=== PATIENT | female | born 1930 | race Caucasian/White ===

== ENCOUNTER 2016-11-06 14:14 | Inpatient (IN) | payer MEDICARE, OTHER ==
[~2016-11-06] VITALS: Ht 165.1 cm; Wt 63.5 kg
[~2016-11-06 14:14] MED LIST: ADV500INH INH; ALBUTEROL NEBULIZER INH; ASPI325T5 PO; ATOR1TAB21 PO; AVAP150T PO; AVEL1TAB PO; BACITAB3 PO; CALCTAB41 PO; CALCTAB68 PO; CEFD1CAP8 PO; CLIN1CAP5 PO; CLOP75TA2 PO; CORE25TA PO; FISH1000 PO; FLUC10TA PO; GLUC500T53 PO; GLUCOSAMINE HCL PO; LEVA12INH INH; LIPI80TA PO; LORA10TA2 PO; MULTTAB4 PO; NITR4TASL SL; PRED10TA PO; PRIL20CA PO; VALS1TAB48 PO; VENTOLIN ROTAHALER INH; VITMTA PO
--- NOTE | 2016-11-06 16:44 | REP ---
Clinical: Acute cough . Comparison: 09/21/2016 . Findings: The mediastinum and cardiac silhouette are stable and within normal limits for portable technique. The lung block are clear without acute consolidation, effusion, or pneumothorax. Skeletal structures are intact. Surgical clips noted over the thyroid bed. Impression: No acute cardiopulmonary process appreciated. Signed by Nahum Lozano MD 11/06/2016 04:35 P
[2016-11-06 16:59] LABS: BASO % 0.2 % (0.0-1.0); EOS # 0.1 K/mm3 (0.0-0.50); EOS % 0.7 % (0.0-3.0); LARGE UNSTAINED CELL # 0.1 K/mm3 (0.0-0.4); LARGE UNSTAINED CELL % 0.7 % (0.0-4.0); LYMPH # 0.8 K/mm3 (1.5-4.5); LYMPH % 8.8 % (24.0-44.0); MEAN CORPUSCULAR HEMOGLOBIN 30.7 pg (27.0-33.0); MEAN CORPUSCULAR HGB CONC 33.8 g/dl (32.0-36.5); MONO # 0.3 K/mm3 (0.0-0.8); MONO % 2.8 % (0.0-5.0); NEUTROPHILS # 8.1 K/mm3 (1.8-7.7); NEUTROPHILS % 86.7 % (36.0-66.0); RED CELL DISTRIBUTION WIDTH 12.7 % (11.5-14.5); WHITE BLOOD COUNT 9.4 K/mm3 (4.0-10.0)
[2016-11-06 17:16] LABS: ANION GAP 11 MEQ/L (8-16); BLOOD UREA NITROGEN 24 MG/DL (7-18); CALCIUM LEVEL 8.8 MG/DL (8.8-10.2); CARBON DIOXIDE LEVEL 24 MEQ/L (21-32); CHLORIDE LEVEL 105 MEQ/L (98-107); CREATININE FOR GFR 0.88 MG/DL (0.55-1.02); GLOMERULAR FILTRATION RATE > 60.0 (>32); GLUCOSE, FASTING 117 MG/DL (83-110); POTASSIUM SERUM 4.5 MEQ/L (3.5-5.1); SODIUM LEVEL 140 MEQ/L (136-145)
[2016-11-06 17:40] LABS: PLATELET COUNT, AUTOMATED 92 k/mm3 (150-450)
[2016-11-06] MEDS ORDERED: cefTRIAXone SOD 1 GM VIAL (J0696) As Ordered ONE (19:15)
[2016-11-06] MEDS ORDERED: AZITHROMYCIN INJ 500MG VIAL (J0456) As Ordered ONE (19:17)
[2016-11-06] MEDS ORDERED: ONDANSETRON 4MG/2ML VIAL (J2405) IV PRN (19:45)
[2016-11-06] MEDS ORDERED: ALBUTEROL SULFATE 2.5 MG/0.5 ML INH NEB SOLN NEB PRN (19:45)
[2016-11-06] MEDS ORDERED: BISACODYL 10 MG SUPP PR PRN (19:45)
[2016-11-06] MEDS ORDERED: ACETAMINOPHEN 500 MG TAB PO PRN (19:45)
[2016-11-06] MEDS ORDERED: methylPREDNISolone INJ 125 MG/2 ML VIAL (J2930) As Ordered ONE (19:58)
[2016-11-06] MEDS ORDERED: ACETAMINOPHEN 325 MG TAB As Ordered ONE (20:00)
[2016-11-06] MEDS: BUDESONIDE 0.5 MG/2 ML INHALATION SUSPENSION INH SCH (20:00)
[2016-11-06] MEDS: IPRATROPIUM 0.5MG/ALBUTEROL 2.5MG INH SOL UD 3ML (DUONEB)(J7620) NEB SCH (20:00)
[2016-11-06] MEDS ORDERED: VALS1TAB46 PO (20:25)
[2016-11-06] MEDS ORDERED: ASPI81TA7 PO (20:25)
[2016-11-06] MEDS ORDERED: TYLE500T78 PO (20:25)
[2016-11-06] MEDS ORDERED: BREO1INH3 INH (20:25)
[2016-11-06 20:34] VITALS: BP 166/75
[2016-11-06 20:43] VITALS: BP 164/85
--- NOTE | 2016-11-06 20:51 | REP ---
Clinical: Cough. Findings: Moderate left lower lobe consolidation and small right lower lobe consolidation along with trace lingular opacity is most compatible with multifocal pneumonia / atelectasis. No pleural effusion. No pneumothorax. Mediastinal and hilar adenopathy is likely reactive measuring up to 11 mm short axis diameter. The mediastinum demonstrates atherosclerotic changes without cardiomegaly or pericardial effusion. A [id number] hiatal hernia is identified at the gastroesophageal junction. The patient is noted to be status post right mastectomy. Limited evaluation of the upper abdomen demonstrates normal bilateral adrenal glands. Osseous structures demonstrate degenerative changes without focal osseous abnormality. Impression: 1. Moderate left and small right lower lobe consolidations with trace lingular opacity most compatible with multifocal pneumonia / atelectasis. Mild reactive adenopathy with mediastinal lymph nodes measuring up to 11 mm short axis diameter. 2. Moderate to large hiatal hernia. Signed by Nahum Lozano MD 11/06/2016 08:42 P
--- NOTE | 2016-11-06 21:02 | EDDOCDS ---
Nurse's Notes [facility] Name: Betsy Beverly Age: 86 yrs Sex: Female : 1930 Arrival Date: 11/06/2016 Time: 14:14 Bed 18 Private MD: Danay Angel Diagnosis: Chronic obstructive pulmonary disease with acute lower respiratory infection Presentation: 11/06 14:39 Presenting complaint: Patient states: that is has L ear pain, coughing, a temp, and a ms18 "head cold". Pt was seen at her doctor's office on and given medications a z-pack, but pt's temperature keeps going up per family. Adult Sepsis Screening: The patient does not have new or worsening altered mentation. Patient's respiratory rate is less than 22. Systolic blood pressure is greater than 100. Patient has a qSOFA score of 0- Negative Sepsis Screen. Suicide/Homicide risk assessment- the patient denies having any suicidal and/or homicidal ideations and does not present with any other emotional, behavioral or mental health complaints. 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 Transition of care: patient was not received from another setting of care. 14:39 Acuity: MEGAN Level 3 ms18 14:39 Method Of Arrival: Walkin/Carried/Asstd ms18 Triage Assessment: 14:46 General: Appears in no apparent distress, ill, Behavior is appropriate for age, ms18 cooperative, pleasant. Pain: Location: head and left ear Pain currently is 7 out of 10 on a pain scale. EENT: Reports pain in left ear. Respiratory: Airway is patent Respiratory effort is even, unlabored. Derm: Skin is pink, warm & dry. Historical: - Allergies: SULFA (SULFONAMIDES); Aveloxseizure; - Home Meds: 1. aspirin 81 mg Oral tab 1 tab once daily 2. atorvastatin 20 mg oral tab 1 tab once daily 3. valsartan 80 mg oral cap daily 4. clopidogrel 75 mg oral tab 1 tab once daily 5. Centrum Silver oral tab daily 6. Calcium + Vitamin D 600 mg calcium- 200 unit Oral tab 1000 unit daily 7. Glucosamine 500 mg oral tab daily 8. Gemini 60 mg Oral cap as needed 9. Breo Ellipta 200-25 mcg/dose inhalation dsdv 1 puff once daily - PMHx: Asthma; COPD; Hypercholesterolemia; Hypertension; Seasonal Allergies; sepsis; - PSHx: Hysterectomy; Cholecystectomy; Thyroid Surgery; Mastectomy- Right; - Social history: Smoking status: Patient states was never smoker of tobacco. No barriers to communication noted, The patient speaks fluent Palestinian. - Family history: No immediate family members are acutely ill. - : The pt / caregiver states he / she is on anticoagulants: Plavix. Home medication list is obtained from the patient. - Exposure Risk Screening:: None identified. Screenin:48 Screening information is obtained from the patient. Fall risk: No risks identified. po Assistance ADL's: requires no assistance with activities of daily living. Abuse/DV Screen: The patient / caregiver reports he/she is: not in a situation that causes fear, pain or injury. Nutritional screening: No deficits noted. Advance Directives: Currently, there is a health care proxy, Daughter, Aide Walls. There is an active DNR order but there is no copy available at this time. Further advance directive information is declined. home support is adequate. Assessment: 16:52 Adult Sepsis Screening: The patient does not have new or worsening altered mentation. po Patient's respiratory rate is less than 22. Systolic blood pressure is greater than 100. Patient has a qSOFA score of 0- Negative Sepsis Screen. General: Appears in no apparent distress, comfortable, Behavior is appropriate for age, cooperative, pleasant. Pain: Location: left ear Pain currently is 7 out of 10 on a pain scale. Quality of pain is described as aching, Is continuous. Neurological: Level of Consciousness is awake, alert, Oriented to person, place, time. Cardiovascular: Rhythm is sinus rhythm Chest pain is denied. Respiratory: Airway is patent Respiratory effort is even, unlabored, Breath sounds with rhonchi expiratory bilaterally. Reports cough that is productive. GI: No deficits noted. Derm: Skin is pink, warm & dry. 17:32 General: Appears in no apparent distress, comfortable, Behavior is appropriate for age, po cooperative, pleasant. Pain: Pain currently is 7 out of 10 on a pain scale. Neurological: No deficits noted. Cardiovascular: Rhythm is sinus rhythm Chest pain is denied. Respiratory: Airway is patent Respiratory effort is even, unlabored. Derm: Skin is pink, warm & dry. 19:00 Adult Sepsis Screening: The patient does not have new or worsening altered mentation. po Patient's respiratory rate is less than 22. Systolic blood pressure is greater than 100. Patient has a qSOFA score of 0- Negative Sepsis Screen. General: Appears in no apparent distress, comfortable, Behavior is appropriate for age, cooperative, pleasant. Pain: Location: left ear Pain currently is 7 out of 10 on a pain scale. Quality of pain is described as aching. Neurological: No deficits noted. Respiratory: Airway is patent Respiratory effort is even, unlabored, ambulated in alvarez with walker, O2Sat decreased to 77% on room air while ambulating. Derm: Skin is pink, warm & dry. 19:02 General: Verbal report given by Jose Lemon RN. Assumed care of patient at this time.. [facility] 19:32 General: Appears in no apparent distress, comfortable, well nourished, well groomed, kas2 Behavior is appropriate for age, cooperative. Pain: Location: left ear and head Pain currently is 4 out of 10 on a pain scale. Neurological: Level of Consciousness is awake, alert, Oriented to person, place, time. Cardiovascular: Capillary refill < 3 seconds Heart tones S1 S2 present Rhythm is sinus tachycardia No ectopy. Respiratory: Airway is patent Respiratory effort is even, unlabored, Breath sounds with rhonchi expiratory bilaterally. GI: No deficits noted. Derm: Skin is intact, is healthy with good turgor, Skin is dry, Skin is pink, warm & dry. Skin temperature is hot. 20:06 General: Patient has a temp of 102.6. Patient shivering and uncomfortable all over [facility] body. Meds given.. Vital Signs: 14:17 BP 137 / 73; Pulse 129; Resp 20 S; Temp 100.4(O); Pulse Ox 93% on R/A; Weight 63.5 kg dd6 (R); Height 5 ft. 5 in. (165.10 cm) (R); 15:38 Temp 99.7(O); rs6 16:26 BP 162 / 65 (auto/); po 16:28 Pulse 108 MON; Pulse Ox 94% ; po 16:48 BP 155 / 66 (auto/); po 16:48 Pulse 108 MON; Resp 20; Pulse Ox 94% on R/A; Pain 7/10; po 17:17 Pulse 106 MON; Resp 20; Pulse Ox 96% on R/A; Pain 7/10; po 17:18 BP 149 / 67 (auto/); po 17:48 BP 162 / 70 (auto/); kas2 17:48 Pulse 106 MON; Pulse Ox 93% ; kas2 17:48 Resp 24; Temp 102.4; Pulse Ox 99% on R/A; Pain 4/10; kas2 18:18 BP 161 / 72 (auto/); kas2 18:18 Pulse 106 MON; Pulse Ox 100% ; kas2 19:29 BP 178 / 79 (auto/); kas2 19:29 Pulse 114 MON; Pulse Ox 95% ; kas2 19:51 BP 156 / 74 (auto/); kas2 19:51 Pulse 118 MON; Pulse Ox 95% ; kas2 19:51 BP 156 / 74; Pulse 118; Resp 24; Temp 102.6; Pulse Ox 99% on R/A; Pain 4/10; kas2 20:09 BP 156 / 74; Pulse 118; Resp 24; Temp 102.6; Pulse Ox 99% on R/A; Pain 4/10; kas2 14:17 Body Mass Index 23.30 (63.50 kg, 165.10 cm) dd6 Vitals: 14:17 Log In Time: November 06, 2016 at 14:15. dd6 ED Course: 14:16 Patient visited by Garfield Howard PCA. dd6 14:16 Danay Angel is Private Physician. dd6 14:16 Patient moved to Waiting dd6 14:17 Patient moved to Pre RCE dd6 14:41 Triage Initiated ms18 15:38 Patient moved to I9 / 22 mlb1 15:39 Sarah Holguin MD is Attending Physician. sd1 15:41 Patient visited by Benita Felton, KIMO. dls 15:44 Patient visited by Sarah Holguin MD. sd1 16:05 Patient visited by Barbara Garcia PCA. ls3 16:05 EKG done. (by ED staff). Reviewed by Sarah Holguin MD. ls3 16:23 Jose Lemon,RN is Primary Nurse. hs1 16:23 Patient moved to 18 hs1 16:48 Pt visited by daughter. po 16:48 [facility] Payment Agreement was scanned into [employer] and attached to record. ks16 16:48 The patient / caregiver is instructed regarding the plan of care and ED course. Placed po in gown. Bed in low position. Call light in reach. Side rails up X2. ammunition assembly ii laborer on. Pulse ox on. NIBP on. 16:48 Inserted saline lock: 20 gauge in left antecubital area. Labs drawn. (by ED staff). po Sent per order to lab. 16:59 Patient visited by Jose Lemon RN. po 17:28 Chest, 1 View Returned. EDMS 17:34 Patient visited by Jose Lemon RN. po 19:01 Melina Oliveira RN is Primary Nurse. kas2 19:02 Patient visited by Jose Lemon RN. po 19:03 Patient visited by Melina Oliveira RN. kas2 19:06 Primary Nurse role handed off by Jose Lemon RN po 19:16 Lo Bishop is Hospitalizing Provider. sd1 19:35 Patient visited by Melina Oliveira RN. kas2 20:13 Patient visited by Melina Oliveira RN. kas2 20:15 No procedures done that require assistance. kas2 Administered Medications: 17:05 Drug: NS 0.9% 1000 ml [sodium chloride 0.9 % intravenous solution] Route: IV; Rate: 150 rs3 mL/hr; Site: left antecubital; 19:32 Drug: cefTRIAXone 1 grams [ceftriaxone 1 gram solution for injection] Route: IVPB; kas2 Infused Over: 30 mins; Site: left antecubital; 20:06 Drug: azithromycin 500 mg [azithromycin 500 mg intravenous solution] Route: IVPB; kas2 Infused Over: 1 hrs; Site: left antecubital; 20:06 Drug: Solu-MEDROL 125 mg [Solu-Medrol 500 mg intravenous solution (125 mg)] Route: IVP; kas2 Site: left antecubital; Order Results: Lab Order: B-Type Natiuretic Peptide; SPEC'M 11/06/16 16:46 Test: BRAIN NATRIURETIC PEPTIDE; Value: 51.3; Range: <100; Units: PG/ML; Status: F Lab Order: Basic Metabolic Profile; SPEC'M 11/06/16 16:47 Test: GLUCOSE, FASTING; Value: 117; Range: 83-110; Abnormal: Above high normal; Units: MG/DL; Status: F Test: BLOOD UREA NITROGEN; Value: 24; Range: 7-18; Abnormal: Above high normal; Units: MG/DL; Status: F Test: CREATININE FOR GFR; Value: 0.88; Range: 0.55-1.02; Units: MG/DL; Status: F Test: GLOMERULAR FILTRATION RATE; Value: > 60.0; Range: >32; Status: F Test: SODIUM LEVEL; Value: 140; Range: 136-145; Units: MEQ/L; Status: F Test: POTASSIUM SERUM; Value: 4.5; Range: 3.5-5.1; Units: MEQ/L; Status: F Test: CHLORIDE LEVEL; Value: 105; Range: 98-107; Units: MEQ/L; Status: F Test: CARBON DIOXIDE LEVEL; Value: 24; Range: 21-32; Units: MEQ/L; Status: F Test: ANION GAP; Value: 11; Range: 8-16; Units: MEQ/L; Status: F Test: CALCIUM LEVEL; Value: 8.8; Range: 8.8-10.2; Units: MG/DL; Status: F Test Note: ; Units are mL/min/1.73 m2 Chronic Kidney Disease Staging per NKF: Stage I & II GFR >=60 Normal to Mildly Decreased Stage III GFR 30-59 Moderately Decreased Stage IV GFR 15-29 Severely Decreased Stage V GFR <15 Very Little GFR Left ESRD GFR <15 on FACING BASTER Lab Order: CBC with Diff; SPEC'M 11/06/16 16:46 Test: WHITE BLOOD COUNT; Value: 9.4; Range: 4.0-10.0; Units: K/mm3; Status: F Test: RED BLOOD COUNT; Value: 4.11; Range: 4.00-5.40; Units: M/mm3; Status: F Test: HEMOGLOBIN; Value: 12.6; Range: 12.0-16.0; Units: g/dl; Status: F Test: HEMATOCRIT; Value: 37.4; Range: 36.0-47.0; Units: %; Status: F Test: MEAN CORPUSCULAR VOLUME; Value: 91.0; Range: 80.0-96.0; Units: fl; Status: F Test: MEAN CORPUSCULAR HEMOGLOBIN; Value: 30.7; Range: 27.0-33.0; Units: pg; Status: F Test: MEAN CORPUSCULAR HGB CONC; Value: 33.8; Range: 32.0-36.5; Units: g/dl; Status: F Test: RED CELL DISTRIBUTION WIDTH; Value: 12.7; Range: 11.5-14.5; Units: %; Status: F Test: PLATELET COUNT, AUTOMATED; Value: 92; Range: 150-450; Abnormal: Below low normal; Units: k/mm3; Status: F Test: NEUTROPHILS %; Value: 86.7; Range: 36.0-66.0; Abnormal: Above high normal; Units: %; Status: F Test: LYMPH %; Value: 8.8; Range: 24.0-44.0; Abnormal: Below low normal; Units: %; Status: F Test: MONO %; Value: 2.8; Range: 0.0-5.0; Units: %; Status: F Test: EOS %; Value: 0.7; Range: 0.0-3.0; Units: %; Status: F Test: BASO %; Value: 0.2; Range: 0.0-1.0; Units: %; Status: F Test: LARGE UNSTAINED CELL %; Value: 0.7; Range: 0.0-4.0; Units: %; Status: F Test: NEUTROPHILS #; Value: 8.1; Range: 1.8-7.7; Abnormal: Above high normal; Units: K/mm3; Status: F Test: LYMPH #; Value: 0.8; Range: 1.5-4.5; Abnormal: Below low normal; Units: K/mm3; Status: F Test: MONO #; Value: 0.3; Range: 0.0-0.8; Units: K/mm3; Status: F Test: EOS #; Value: 0.1; Range: 0.0-0.50; Units: K/mm3; Status: F Test: BASO #; Value: 0.0; Range: 0.0-0.2; Units: K/mm3; Status: F Test: LARGE UNSTAINED CELL #; Value: 0.1; Range: 0.0-0.4; Units: K/mm3; Status: F Lab Order: Lactic Acid (Hendrix tube on ice); SPEC'M 11/06/16 16:46 Test: LACTIC ACID LEVEL, LACTATE; Value: 1.5; Range: 0.4-2.0; Units: MMOL/L; Status: F Lab Order: -Influenza A&B Rapid Antigen - Nose; SPEC'M 11/06/16 16:46 Test: INFLUENZA A RAPID SCR by ICA; Value: INFLUENZA A RESULTS NEGATIVE; Status: F Test: INFLUENZA A RAPID SCR by ICA; Value: Comments:; Status: F Test: INFLUENZA B RAPID SCR by ICA; Value: INFLUENZA B RESULTS NEGATIVE; Status: F Test Note: ; The Influenza test is a direct rapid immunoassay for the qualitative detection of Influenza viral antigen. Cell culture (Viral Culture) testing should be considered to confirm NEGATIVE results and to assist in detecting other viruses that can provide similar clinical symptoms. Please contact the lab within 24 hours ([phone]) if confirmatory testing is desired. Radiology Order: Chest, 1 View Test: Chest, 1 View REASON FOR EXAMINATION: Cough; Clinical: Acute cough .; ; Comparison: 09/21/2016 .; ; Findings:; The mediastinum and cardiac silhouette are stable and within normal limits for; portable technique. The lung block are clear without acute consolidation,; effusion, or pneumothorax. Skeletal structures are intact. Surgical clips noted; over the thyroid bed.; ; Impression:; No acute cardiopulmonary process appreciated.; ; ; Signed by; Nahum Lozano MD 11/06/2016 04:35 P; Outcome: 19:16 Decision to Hospitalize by Provider. sd1 20:14 Discharge Assessment: patient administered narcotics - no. The following High Risk [facility] Discharge criteria are identified: None. Admitted to Med/Surg accompanied by tech, via stretcher, with chart. Condition: good Condition: stable Condition: unchanged. CT Study completed. Property :Personal belongings accompany Pt. 21:01 Patient left the ED. kas2 Signatures: Dispatcher [employer] EDMS Sarah Holguin MD MD sd1 Joes Lemon,RN Benita Alejandro RN RN dls Youngs, David, RN RN dy Barney, Michael B RN RN mlb1 Garfield Howard, HENNA FOOD CHECKER dd6 Robyn Anaya RN RN rs3 Dafne Baker RN RN hs1 Wendy Oliveira RN RN ms18 Rika Preciado, FOOD CHECKER FOOD CHECKER rs6 Barbara Garcia, FOOD CHECKER FOOD CHECKER ls3 Randi Bernal, Reg Reg ks16 Melina OliveiraRN RN kas2 Corrections: (The following items were deleted from the chart) 15:56 15:55 Temp 99.7F Oral; rs6 rs6 17:02 16:52 Respiratory: Airway is patent Respiratory effort is even, unlabored, Breath po sounds with rhonchi expiratory bilaterally. po MTDD
--- NOTE | 2016-11-06 21:02 | EDDOCDS ---
Physician Documentation [facility] Name: Betsy Beverly Age: 86 yrs Sex: Female : 1930 Arrival Date: 11/06/2016 Time: 14:14 Bed 18 Private MD: Danay Angel Disposition: 11/06/16 19:16 Hospitalization ordered by Lo Bishop for Inpatient Admission. Preliminary diagnosis is Chronic obstructive pulmonary disease with acute lower respiratory infection. - Bed requested for 4 [place]. - Status is Inpatient Admission. kas2 - Condition is Stable. - Problem is an acute exacerbation. - Symptoms are unchanged. Historical: - Allergies: SULFA (SULFONAMIDES); Aveloxseizure; - Home Meds: 1. aspirin 81 mg Oral tab 1 tab once daily 2. atorvastatin 20 mg oral tab 1 tab once daily 3. valsartan 80 mg oral cap daily 4. clopidogrel 75 mg oral tab 1 tab once daily 5. Centrum Silver oral tab daily 6. Calcium + Vitamin D 600 mg calcium- 200 unit Oral tab 1000 unit daily 7. Glucosamine 500 mg oral tab daily 8. Gemini 60 mg Oral cap as needed 9. Breo Ellipta 200-25 mcg/dose inhalation dsdv 1 puff once daily - PMHx: Asthma; COPD; Hypercholesterolemia; Hypertension; Seasonal Allergies; sepsis; - PSHx: Hysterectomy; Cholecystectomy; Thyroid Surgery; Mastectomy- Right; - Social history: Smoking status: Patient states was never smoker of tobacco. No barriers to communication noted, The patient speaks fluent Bermudian. - Family history: No immediate family members are acutely ill. - : The pt / caregiver states he / she is on anticoagulants: Plavix. Home medication list is obtained from the patient. - Exposure Risk Screening:: None identified. Vital Signs: 11/06 14:17 BP 137 / 73; Pulse 129; Resp 20 S; Temp 100.4(O); Pulse Ox 93% on R/A; Weight 63.5 kg / dd6 139.99 lbs (R); Height 5 ft. 5 in. (165.10 cm) (R); 15:38 Temp 99.7(O); rs6 16:26 BP 162 / 65 (auto/); po 16:28 Pulse 108 MON; Pulse Ox 94% ; po 16:48 BP 155 / 66 (auto/); po 16:48 Pulse 108 MON; Resp 20; Pulse Ox 94% on R/A; Pain 7/10; po 17:17 Pulse 106 MON; Resp 20; Pulse Ox 96% on R/A; Pain 7/10; po 17:18 BP 149 / 67 (auto/); po 17:48 BP 162 / 70 (auto/); kas2 17:48 Pulse 106 MON; Pulse Ox 93% ; kas2 17:48 Resp 24; Temp 102.4; Pulse Ox 99% on R/A; Pain 4/10; kas2 18:18 BP 161 / 72 (auto/); kas2 18:18 Pulse 106 MON; Pulse Ox 100% ; kas2 19:29 BP 178 / 79 (auto/); kas2 19:29 Pulse 114 MON; Pulse Ox 95% ; kas2 19:51 BP 156 / 74 (auto/); kas2 19:51 Pulse 118 MON; Pulse Ox 95% ; kas2 19:51 BP 156 / 74; Pulse 118; Resp 24; Temp 102.6; Pulse Ox 99% on R/A; Pain 4/10; kas2 20:09 BP 156 / 74; Pulse 118; Resp 24; Temp 102.6; Pulse Ox 99% on R/A; Pain 4/10; kas2 14:17 Body Mass Index 23.30 (63.50 kg, 165.10 cm) dd6 MDM: 15:53 -Blood Culture (Adults Only), peripheral from different site, or from device/port/PICC sd1 etc. if present ordered. 15:53 Booky/Pulse Ox/q 15 min VS ordered. sd1 15:53 IV Saline Lock ordered. sd1 15:53 Rhythm Strip to chart ordered. sd1 15:54 B-Type Natiuretic Peptide Ordered. EDMS 15:54 Basic Metabolic Profile Ordered. EDMS 15:54 CBC with Diff Ordered. EDMS 15:54 NS 0.9% 1000 ml IV at 150 mL/hr continuous ordered. sd1 15:55 Obtain sample by nasopharyngeal swab ordered. sd1 15:55 -Blood Culture Ordered. EDMS 15:55 Chest, 1 View Ordered. EDMS 15:55 ECG WITH READING ER PHYS+CARDIAG ordered. EDMS 15:55 -Blood Culture (Adults Only), peripheral from different site, or from device/port/PICC deg etc. if present complete. 15:56 Lactic Acid (Hendrix tube on ice) Ordered. EDMS 15:56 -Influenza A&B Rapid Antigen - Nose Ordered. EDMS 15:56 BLOOD CULTURES Ordered. EDMS 16:31 Financial registration complete. ks16 16:48 [facility] Payment Agreement was scanned into [employer] and attached to record. ks16 17:43 Basic Metabolic Profile Reviewed. sd1 17:43 CBC with Diff Reviewed. sd1 17:43 B-Type Natiuretic Peptide Reviewed. sd1 17:43 Lactic Acid (Hendrix tube on ice) Reviewed. sd1 17:43 -Influenza A&B Rapid Antigen - Nose Reviewed. sd1 17:43 Chest, 1 View Reviewed. sd1 18:27 Misc. Nursing Order ordered. sd1 19:04 BED REQUEST+ADM ordered. EDMS 19:05 CT Chest Without Contrast Ordered. EDMS 19:11 cefTRIAXone 1 grams IVPB once over 30 mins; dilute in 50mL of NS or D5W ordered. sd1 19:11 azithromycin 500 mg IVPB once over 1 hrs; dilute in 250mL of D5W or NS ordered. sd1 19:17 Albuterol-Ipratropium 3 ml Inhalation once ordered. sd1 19:17 Solu-MEDROL 125 mg IVP once ordered. sd1 19:40 Admission / Observation Status ordered. EDMS 19:40 REGULAR DIET ordered. EDMS 19:40 CBC WITH DIFFERENTIAL Ordered. EDMS 19:41 BASIC METABOLIC PROFILE Ordered. EDMS Administered Medications: 17:05 Drug: NS 0.9% 1000 ml [sodium chloride 0.9 % intravenous solution] Route: IV; Rate: 150 rs3 mL/hr; Site: left antecubital; 19:32 Drug: cefTRIAXone 1 grams [ceftriaxone 1 gram solution for injection] Route: IVPB; kas2 Infused Over: 30 mins; Site: left antecubital; 20:06 Drug: azithromycin 500 mg [azithromycin 500 mg intravenous solution] Route: IVPB; kas2 Infused Over: 1 hrs; Site: left antecubital; 20:06 Drug: Solu-MEDROL 125 mg [Solu-Medrol 500 mg intravenous solution (125 mg)] Route: IVP; kas2 Site: left antecubital; Signatures: Dispatcher [employer] EDMS Sarah Holguin MD MD sd1 Prema Streeter, Application Support Consultant Unit deg Lemon,Jose,RN RN po Damion , Charline, RN RN Alen Loving, RN Wendy Seth,RN RN ms18 Randi Bernal, Reg Reg ks16 Melina Oliveira RN RN kas2 Robyn Anaya RN rs3 The chart was reviewed and I authenticate all verbal orders and agree with the evaluation and treatment provided.Corrections: (The following items were deleted from the chart) 17:13 15:53 Oxygen at 4L/Min [place] or Home dosage ordered. sd1 po Attachments: 16:48 [facility] Payment Agreement ks16 MTDD
[2016-11-06 22:00] VITALS: BP 153/72
[2016-11-06] MEDS: LORATADINE 10 MG TAB PO SCH (22:19)
[2016-11-06] MEDS: NS 1,000 ML IV SCH (22:20)
[2016-11-07] MEDS: IPRATROPIUM 0.5MG/ALBUTEROL 2.5MG INH SOL UD 3ML (DUONEB)(J7620) NEB SCH ×4 (02:00→20:02)
[2016-11-07 02:45] VITALS: BP 136/84
--- NOTE | 2016-11-07 04:26 | HPE ---
DATE OF ADMISSION: 11/06/2016 PRIMARY CARE PHYSICIAN: Danay Angel MD. CHIEF COMPLAINT: Fever, cough, headache, brownish phlegm production, and nasal congestion for 7 days, along with left ear pain. PAST MEDICAL HISTORY: 1. Hypertension. 2. Hyperlipidemia. 3. Asthma. 4. Chronic obstructive pulmonary disease (COPD). 5. Seasonal allergies. 6. History of coronary artery disease. 7. History of breast cancer status post right mastectomy. 8. History of drug-induced thrombocytopenia thought to be related to Zosyn and vancomycin. HISTORY OF PRESENT ILLNESS: This is an 86-year-old female from home, who has been feeling sick for the past 6-7 days. She has been having fever, features of a cold, congestion, left ear pain, sinus tenderness, along with cough and phlegm production. Patient had gone to her primary care physician and was given a course of Z-Leon, which she finished this week without any resolution of symptoms. Patient continued to have high-grade fever 101-102 at home, with worsening cough and earache, headache, so came to the emergency room to be evaluated. In the emergency department (ED) on admission, patient did have temperature of 102. Lab work was significant for thrombocytopenia of 92, otherwise everything was within normal limits. Patient was given Tylenol with improvement in temperature and was going to be discharged home; however, on ambulating patient became hypoxic, dropping to 82. Patient does not use any oxygen at home. Following this, patient again had a bout of fever and had a CT scan of the chest done, which shows bilateral infiltrates and multifocal pneumonia, so the patient is being admitted to the hospitalist service for community-acquired pneumonia, bilateral with a COPD exacerbation and upper respiratory tract infection. PAST SURGICAL HISTORY: 1. Hysterectomy. 2. Cholecystectomy. 3. Right mastectomy. 4. Sinus surgery. 5. Cardiac stents. 6. Partial thyroidectomy. HOME MEDICATIONS: - aspirin 81 mg daily - Plavix 75 mg daily - atorvastatin 20 mg daily - valsartan 80 mg daily - calcium/vitamin D one tablet daily - glucosamine 500 mg daily - Gemini 60 mg as needed - Breo Ellipta 200/25 mcg inhalation once a day - Centrum Silver one tablet daily - nitroglycerin 0.4 mg sublingually as needed ALLERGIES: To SULFONAMIDES and AVELOX. SOCIAL HISTORY: Never smoked, does not abuse alcohol or recreational drugs. FAMILY HISTORY: No significant pertinent history present. REVIEW OF SYSTEMS: Patient denies any abdominal pain, any nausea, vomiting or diarrhea. Patient denies any dysuria, any hematuria. Does say that she has hemorrhoids. Does complain of left ear pain, frontal headache and fevers and chills going on from home. There is also complaint of shortness of breath. Denies any palpitations or chest pain. Has a lot of phlegm production, yellowish and brownish in color. PHYSICAL EXAMINATION: VITAL SIGNS: Blood pressure 156/74 , pulse 119, respiratory rate 24, temperature 102.6, pulse oximetry 99% in room air. GENERAL: Patient awake, alert, oriented times three, lying down in bed in no acute distress. HEENT: Normocephalic, atraumatic. Dry mucous membranes. Anicteric eyes. CHEST: Bilateral coarse breath sounds with some rhonchi and basal crackles. CARDIOVASCULAR: S1, S2, irregular, tachycardia. No rub, murmur or gallop. ABDOMEN: Soft, nontender, bowel sounds present. EXTREMITIES: No edema. LABORATORY DATA: WBC 9.4, hemoglobin 12.6, platelets 92. Sodium 140, potassium 4.5, chloride 105, bicarbonate 24, BUN 24, creatinine 0.8, glucose 117, calcium 8.8, lactic 1.5, BNP 51.3. CT chest shows moderate left lower lobe infiltrate, small right lower lobe infiltrate suggesting multifocal pneumonia. ASSESSMENT AND PLAN: This is an 86-year-old female admitted for community-acquired pneumonia, sepsis. PLAN: 1. For community-acquired pneumonia, will start the patient on ceftriaxone. Patient just finished a course of Z-Leon and also received azithromycin one dose in the emergency department (ED), so will not continue azithromycin at this point. 2. Sepsis due to community-acquired pneumonia. Will continue with antibiotics. Blood cultures have been ordered. Flu has been negative. 3. Chronic obstructive pulmonary disease (COPD). Will continue with albuterol ipratropium, budesonide inhalations. Oxygen supplementation as required. There is mild exacerbation going on; however, will not start steroids at this point. 4. Hypertension. Will continue with valsartan. 5. Hyperlipidemia. Will continue with atorvastatin. 6. Coronary artery disease. Will continue with aspirin and Plavix. 7. Upper respiratory infection, as well as left ear infection. She will be covered by ceftriaxone. 8. Deep venous thrombosis (DVT) prophylaxis. Will give thromboembolism deterrent (JORGE L) stockings and sequentials. 9. Thrombocytopenia noted on admission. She does have a history of thrombocytopenia, which has been attributed to antibiotics in the past. She did get a course of azithromycin in the past week, so it is a possibility antibiotic may have caused thrombocytopenia. At present, I am not ordering any azithromycin. Will have to monitor if it improves. Will also not give Lovenox or heparin for DVT prophylaxis. 10. Gastrointestinal (GI) prophylaxis has been ordered.
[2016-11-07 06:00] VITALS: BP 135/70
[2016-11-07 06:49] LABS: ANION GAP 11 MEQ/L (8-16); BLOOD UREA NITROGEN 22 MG/DL (7-18); CARBON DIOXIDE LEVEL 20 MEQ/L (21-32); CHLORIDE LEVEL 110 MEQ/L (98-107); CREATININE FOR GFR 0.76 MG/DL (0.55-1.02); GLOMERULAR FILTRATION RATE > 60.0 (>32); GLUCOSE, FASTING 182 MG/DL (83-110); POTASSIUM SERUM 3.9 MEQ/L (3.5-5.1); SODIUM LEVEL 141 MEQ/L (136-145)
[2016-11-07 06:58] LABS: BASO % 0.1 % (0.0-1.0); EOS % 0.4 % (0.0-3.0); LARGE UNSTAINED CELL # 0.1 K/mm3 (0.0-0.4); LARGE UNSTAINED CELL % 0.9 % (0.0-4.0); LYMPH % 9.5 % (24.0-44.0); MEAN CORPUSCULAR HEMOGLOBIN 31.2 pg (27.0-33.0); MEAN CORPUSCULAR HGB CONC 33.1 g/dl (32.0-36.5); MEAN CORPUSCULAR VOLUME 94.2 fl (80.0-96.0); MONO # 0.2 K/mm3 (0.0-0.8); MONO % 1.5 % (0.0-5.0); NEUTROPHILS # 8.7 K/mm3 (1.8-7.7); NEUTROPHILS % 87.6 % (36.0-66.0); RED CELL DISTRIBUTION WIDTH 12.8 % (11.5-14.5)
[2016-11-07 07:02] LABS: PLATELET COUNT, AUTOMATED 86 k/mm3 (150-450)
--- NOTE | 2016-11-07 07:30 | ECGEPIP ---
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
[2016-11-07] MEDS: BUDESONIDE 0.5 MG/2 ML INHALATION SUSPENSION INH SCH ×2 (07:51→20:02)
[2016-11-07] MEDS ORDERED: ENOXAPARIN 30 MG/0.3 ML SYR (J1650) SC SCH (09:00)
[2016-11-07] MEDS ORDERED: AZITHROMYCIN 250 MG TAB PO SCH (09:00)
[2016-11-07] MEDS: PANTOPRAZOLE 40MG TAB (PROTONIX) PO SCH (09:38)
[2016-11-07] MEDS: NS 1,000 ML IV SCH (10:59)
--- NOTE | 2016-11-07 13:25 | IPNPDOC ---
Assessment/Plan Date Seen The patient was seen on 11/07/16. Plan / VTE VTE Prophylaxis Ordered?: Yes Plan Plan Text 1. Shortness of breath secondary to community acquired pneumonia CT of the chest noted Blood cultures and sputum culture pending Patient states that her respiratory status has improved since admission Patient on Rocephin We will continue to monitor the patient's respiratory status 2. Sepsis due to community-acquired pneumonia. Will continue with antibiotics. Blood cultures have been ordered Flu has been negative. 3. Chronic obstructive pulmonary disease (COPD). Continue with albuterol, ipratropium, budesonide inhalations. No active wheezing at this time, we will hold off on any steroids 4. Hypertension, stable Continue valsartan 5. Hyperlipidemia Continue with atorvastatin. 6. Coronary artery disease Continue with Aspirin and Plavix. 7. Thrombocytopenia It seems as though the patient does have a history of thrombocytopenia dating back to December of last year No active bleeding at this time, and no transfusion of platelets indicated Recommend outpatient workup for thrombocytopenia We will continue to monitor thrombocytopenia 8. History of breast cancer status post right-sided mastectomy Subjective Review of Systems CC/HPI The patient is a 86-year-old female admitted with a reason for visit of Copd Exacerbation, Upper Respiratory Infection. General: Denies: Chills, Night Sweats Constitutional: Denies: Chills, Fever Eyes: Denies: Pain, Vision change ENT: Denies: Ear Pain, Head Aches Skin: Denies: Lesions, Rash Pulmonary: Reports: Cough, Dyspnea Cardiovascular: Denies: Chest Pain, Orthopnea, Palpitations Gastrointestinal: Denies: Abdominal Pain, Nausea, Vomiting Hematologic: Denies: Bleeding Excessively, Bruising Musculoskeletal: Denies: Back Pain, Neck Pain Objective Physical Examination General Exam: Positive: Alert, Cooperative, No Acute Distress ENT Exam: Positive: Atraumatic, Mucous membr. moist/pink Chest Exam: Positive: Diminished, Rhonchi, Negative: Rales Heart Exam: Positive: Normal S1, Normal S2, Rate Normal Vital Signs/I&O Vital Signs Date Time Temp Pulse Resp B/P Pulse Ox O2 Delivery O2 Flow Rate FiO2 11/07/16 10:40 Room Air 11/07/16 06:00 97.5 76 16 135/70 94 I&O- Last 24 Hours up to 6 AM 11/07/16 06:00 Intake Total 360 ml Output Total 0 ml Balance 360 ml Laboratory Data Labs 24H Laboratory Tests 2 11/06/16 16:46: B-Type Natriuretic Peptide 51.3, White Blood Count 9.4, Red Blood Count 4.11, Hemoglobin 12.6, Hematocrit 37.4, Mean Corpuscular Volume 91.0, Mean Corpuscular Hemoglobin 30.7, Mean Corpuscular Hemoglobin Concent 33.8, Red Cell Distribution Width 12.7, Platelet Count 92L, Neutrophils (%) (Auto) 86.7H, Lymphocytes (%) (Auto) 8.8L, Monocytes (%) (Auto) 2.8, Eosinophils (%) (Auto) 0.7, Basophils (%) (Auto) 0.2, Neutrophils # (Auto) 8.1H, Lymphocytes # (Auto) 0.8L, Monocytes # (Auto) 0.3, Eosinophils # (Auto) 0.1, Basophils # (Auto) 0.0, Lactic Acid Level 1.5, Large Unclassified Cells # 0.1, Large Unclassified Cells % 0.7 11/06/16 16:47: Anion Gap 11, Blood Urea Nitrogen 24H, Creatinine 0.88, Sodium Level 140, Potassium Level 4.5, Chloride Level 105, Carbon Dioxide Level 24, Calcium Level 8.8, Glomerular Filtration Rate > 60.0 11/07/16 05:55: White Blood Count 10.0, Red Blood Count 3.64L, Hemoglobin 11.4L, Hematocrit 34.3L, Mean Corpuscular Volume 94.2, Mean Corpuscular Hemoglobin 31.2, Mean Corpuscular Hemoglobin Concent 33.1, Red Cell Distribution Width 12.8, Platelet Count 86L, Neutrophils (%) (Auto) 87.6H, Lymphocytes (%) (Auto) 9.5L, Monocytes (%) (Auto) 1.5, Eosinophils (%) (Auto) 0.4, Basophils (%) (Auto) 0.1, Neutrophils # (Auto) 8.7H, Lymphocytes # (Auto) 1.0L, Monocytes # (Auto) 0.2, Eosinophils # (Auto) 0.0, Basophils # (Auto) 0.0, Large Unclassified Cells # 0.1 , Large Unclassified Cells % 0.9, Anion Gap 11, Blood Urea Nitrogen 22H, Creatinine 0.76, Sodium Level 141, Potassium Level 3.9, Chloride Level 110H, Carbon Dioxide Level 20L, Calcium Level 8.0L, Glomerular Filtration Rate > 60.0 CBC/BMP Laboratory Tests 11/06/16 16:46 Red Blood Count 4.11, Mean Corpuscular Volume 91.0, Mean Corpuscular Hemoglobin 30.7, Mean Corpuscular Hemoglobin Concent 33.8, Red Cell Distribution Width 12.7 , Neutrophils (%) (Auto) 86.7 H, Lymphocytes (%) (Auto) 8.8 L, Monocytes (%) ( Auto) 2.8, Eosinophils (%) (Auto) 0.7, Basophils (%) (Auto) 0.2, Neutrophils # ( Auto) 8.1 H, Lymphocytes # (Auto) 0.8 L, Monocytes # (Auto) 0.3, Eosinophils # ( Auto) 0.1, Basophils # (Auto) 0.0 11/06/16 16:47 Calcium Level 8.8 11/07/16 05:55 Red Blood Count 3.64 L, Mean Corpuscular Volume 94.2, Mean Corpuscular Hemoglobin 31.2, Mean Corpuscular Hemoglobin Concent 33.1, Red Cell Distribution Width 12.8, Neutrophils (%) (Auto) 87.6 H, Lymphocytes (%) (Auto) 9.5 L, Monocytes (%) (Auto) 1.5, Eosinophils (%) (Auto) 0.4, Basophils (%) (Auto ) 0.1, Neutrophils # (Auto) 8.7 H, Lymphocytes # (Auto) 1.0 L, Monocytes # (Auto ) 0.2, Eosinophils # (Auto) 0.0, Basophils # (Auto) 0.0, Calcium Level 8.0 L Microbiology Microbiology 11/06/16 Blood Culture, Received Pending 11/06/16 Blood Culture, Received Pending 11/06/16 Influenza Virus Type A Antigen - Final, Complete 11/06/16 Influenza Virus Type B Antigen - Final, Complete SHIRA FRAGA MD Nov 07, 2016 13:25
[2016-11-07 14:00] VITALS: BP 126/65
[2016-11-07] MEDS: ASPIRIN 81 MG ENTERIC TAB PO SCH (20:03)
[2016-11-07] MEDS: LORATADINE 10 MG TAB PO SCH (20:03)
[2016-11-07] MEDS: CLOPIDOGREL 75 MG TAB PO SCH (20:03)
[2016-11-07] MEDS: cefTRIAXone SOD 1 GM in D5W MINI-BAG PLUS 50 ML IV SCH (20:03)
[2016-11-07] MEDS: ATORVASTATIN 20 MG TAB PO SCH (20:03)
[2016-11-07] MEDS: VALSARTAN 80 MG TAB (DIOVAN) PO SCH (20:03)
[2016-11-07 22:00] VITALS: BP 142/80
[2016-11-08] MEDS: IPRATROPIUM 0.5MG/ALBUTEROL 2.5MG INH SOL UD 3ML (DUONEB)(J7620) NEB SCH ×4 (02:00→19:48)
[2016-11-08 06:00] VITALS: BP 133/63
[2016-11-08 06:03] LABS: BASO % 0.1 % (0.0-1.0); EOS % 0.3 % (0.0-3.0); LARGE UNSTAINED CELL # 0.1 K/mm3 (0.0-0.4); LARGE UNSTAINED CELL % 0.7 % (0.0-4.0); LYMPH # 1.8 K/mm3 (1.5-4.5); LYMPH % 18.3 % (24.0-44.0); MEAN CORPUSCULAR HEMOGLOBIN 31.4 pg (27.0-33.0); MEAN CORPUSCULAR HGB CONC 34.2 g/dl (32.0-36.5); MEAN CORPUSCULAR VOLUME 91.7 fl (80.0-96.0); MONO # 0.3 K/mm3 (0.0-0.8); MONO % 2.7 % (0.0-5.0); NEUTROPHILS # 7.8 K/mm3 (1.8-7.7); NEUTROPHILS % 77.9 % (36.0-66.0); RED CELL DISTRIBUTION WIDTH 12.9 % (11.5-14.5)
[2016-11-08 06:07] LABS: PLATELET COUNT, AUTOMATED 69 k/mm3 (150-450)
[2016-11-08 06:25] LABS: ANION GAP 9 MEQ/L (8-16); BLOOD UREA NITROGEN 20 MG/DL (7-18); CARBON DIOXIDE LEVEL 21 MEQ/L (21-32); CHLORIDE LEVEL 113 MEQ/L (98-107); CREATININE FOR GFR 0.73 MG/DL (0.55-1.02); GLOMERULAR FILTRATION RATE > 60.0 (>32); GLUCOSE, FASTING 105 MG/DL (83-110); POTASSIUM SERUM 3.4 MEQ/L (3.5-5.1); SODIUM LEVEL 143 MEQ/L (136-145)
[2016-11-08] MEDS: BUDESONIDE 0.5 MG/2 ML INHALATION SUSPENSION INH SCH ×2 (07:27→19:48)
[2016-11-08] MEDS: PANTOPRAZOLE 40MG TAB (PROTONIX) PO SCH (09:40)
[2016-11-08] MEDS: POTASSIUM CHLORIDE 10% LIQ 20 MEQ/15 ML UDC PO SCH (09:40)
[2016-11-08] MEDS ORDERED: CEPACOL LOZENGE PO PRN (10:45)
--- NOTE | 2016-11-08 12:53 | IPNPDOC ---
Assessment/Plan Date Seen The patient was seen on 11/08/16. Plan / VTE VTE Prophylaxis Ordered?: Yes Plan Plan Text 1. Shortness of breath secondary to community acquired pneumonia CT of the chest noted Blood cultures unrevealing thus far and sputum culture pending Patient states that her respiratory status has improved since admission Patient on Rocephin We will continue to monitor the patient's respiratory status 2. Sepsis due to community-acquired pneumonia. Will continue with antibiotics. Blood cultures unrevealing thus far Flu has been negative. 3. Chronic obstructive pulmonary disease (COPD). Continue with albuterol, ipratropium, budesonide inhalations. No active wheezing at this time, we will hold off on any steroids 4. Hypertension, stable Continue valsartan 5. Hyperlipidemia Continue with atorvastatin. 6. Coronary artery disease Continue with Aspirin and Plavix. 7. Thrombocytopenia It seems as though the patient does have a history of thrombocytopenia dating back to December of last year No active bleeding at this time, and no transfusion of platelets indicated Recommend outpatient workup for thrombocytopenia We will continue to monitor thrombocytopenia 8. History of breast cancer status post right-sided mastectomy Disposition: As per PT recommendations once medically cleared. Subjective Review of Systems CC/HPI The patient is a 86-year-old female admitted with a reason for visit of Copd Exacerbation, Upper Respiratory Infection. General: Denies: Chills, Night Sweats Constitutional: Denies: Chills, Fever Eyes: Denies: Pain, Vision change ENT: Denies: Ear Pain, Head Aches Skin: Denies: Lesions, Rash Pulmonary: Reports: Cough, Dyspnea Cardiovascular: Denies: Chest Pain, Palpitations Gastrointestinal: Denies: Abdominal Pain, Nausea, Vomiting Hematologic: Denies: Bleeding Excessively, Bruising Objective Physical Examination General Exam: Positive: Alert, Cooperative, No Acute Distress ENT Exam: Positive: Atraumatic, Mucous membr. moist/pink Chest Exam: Positive: Diminished, Rhonchi, Negative: Rales Heart Exam: Positive: Normal S1, Normal S2, Rate Normal Vital Signs/I&O Vital Signs Date Time Temp Pulse Resp B/P Pulse Ox O2 Delivery O2 Flow Rate FiO2 11/08/16 09:45 Room Air 11/08/16 06:00 98.8 87 17 133/63 96 I&O- Last 24 Hours up to 6 AM 11/08/16 06:00 Intake Total 2300 ml Output Total 0 ml Balance 2300 ml Laboratory Data Labs 24H Laboratory Tests 2 11/08/16 05:19: Anion Gap 9, White Blood Count 10.0, Red Blood Count 3.05L, Hemoglobin 9.6L, Hematocrit 27.9L, Mean Corpuscular Volume 91.7, Mean Corpuscular Hemoglobin 31.4 , Mean Corpuscular Hemoglobin Concent 34.2, Red Cell Distribution Width 12.9, Platelet Count 69L, Neutrophils (%) (Auto) 77.9H, Lymphocytes (%) (Auto) 18.3L, Monocytes (%) (Auto) 2.7, Eosinophils (%) (Auto) 0.3, Basophils (%) (Auto) 0.1, Neutrophils # (Auto) 7.8H, Lymphocytes # (Auto) 1.8, Monocytes # (Auto) 0.3, Eosinophils # (Auto) 0.0, Basophils # (Auto) 0.0, Blood Urea Nitrogen 20H, Creatinine 0.73, Sodium Level 143, Potassium Level 3.4L, Chloride Level 113H, Carbon Dioxide Level 21, Calcium Level 7.0L, Glomerular Filtration Rate > 60.0, Large Unclassified Cells # 0.1, Large Unclassified Cells % 0.7 CBC/BMP Laboratory Tests 11/08/16 05:19 Calcium Level 7.0 L, Red Blood Count 3.05 L, Mean Corpuscular Volume 91.7, Mean Corpuscular Hemoglobin 31.4, Mean Corpuscular Hemoglobin Concent 34.2, Red Cell Distribution Width 12.9, Neutrophils (%) (Auto) 77.9 H, Lymphocytes (%) (Auto) 18.3 L, Monocytes (%) (Auto) 2.7, Eosinophils (%) (Auto) 0.3, Basophils (%) ( Auto) 0.1, Neutrophils # (Auto) 7.8 H, Lymphocytes # (Auto) 1.8, Monocytes # ( Auto) 0.3, Eosinophils # (Auto) 0.0, Basophils # (Auto) 0.0 Microbiology Microbiology 11/06/16 Blood Culture - Preliminary, Resulted No growth after 24 hours . All specim... 11/06/16 Blood Culture - Preliminary, Resulted No growth after 24 hours . All specim... 11/06/16 Influenza Virus Type A Antigen - Final, Complete 11/06/16 Influenza Virus Type B Antigen - Final, Complete SHIRA FRAGA MD Nov 08, 2016 12:53
[2016-11-08 14:00] VITALS: BP 143/67
[2016-11-08 20:39] VITALS: BP 151/73
[2016-11-08] MEDS: ATORVASTATIN 20 MG TAB PO SCH (20:39)
[2016-11-08] MEDS: ASPIRIN 81 MG ENTERIC TAB PO SCH (20:39)
[2016-11-08] MEDS: VALSARTAN 80 MG TAB (DIOVAN) PO SCH (20:39)
[2016-11-08] MEDS: CLOPIDOGREL 75 MG TAB PO SCH (20:39)
[2016-11-08] MEDS: cefTRIAXone SOD 1 GM in D5W MINI-BAG PLUS 50 ML IV SCH (20:39)
[2016-11-08] MEDS: LORATADINE 10 MG TAB PO SCH (20:39)
[2016-11-08 22:00] VITALS: BP 151/73
--- NOTE | 2016-11-08 22:02 | EDDOCDS ---
Physician Documentation [facility] Name: Betsy Beverly Age: 86 yrs Sex: Female : 1930 Arrival Date: 11/06/2016 Time: 14:14 Bed 18 Private MD: Danay Angel Disposition: 11/06/16 19:16 Hospitalization ordered by Lo Bishop for Inpatient Admission. Preliminary diagnosis is Chronic obstructive pulmonary disease with acute lower respiratory infection. - Bed requested for 4 [place]. - Status is Inpatient Admission. kas2 - Condition is Stable. - Problem is an acute exacerbation. - Symptoms are unchanged. Historical: - Allergies: SULFA (SULFONAMIDES); Aveloxseizure; - Home Meds: 1. aspirin 81 mg Oral tab 1 tab once daily 2. atorvastatin 20 mg oral tab 1 tab once daily 3. valsartan 80 mg oral cap daily 4. clopidogrel 75 mg oral tab 1 tab once daily 5. Centrum Silver oral tab daily 6. Calcium + Vitamin D 600 mg calcium- 200 unit Oral tab 1000 unit daily 7. Glucosamine 500 mg oral tab daily 8. Gemini 60 mg Oral cap as needed 9. Breo Ellipta 200-25 mcg/dose inhalation dsdv 1 puff once daily - PMHx: Asthma; COPD; Hypercholesterolemia; Hypertension; Seasonal Allergies; sepsis; - PSHx: Hysterectomy; Cholecystectomy; Thyroid Surgery; Mastectomy- Right; - Social history: Smoking status: Patient states was never smoker of tobacco. No barriers to communication noted, The patient speaks fluent [place]isian. - Family history: No immediate family members are acutely ill. - : The pt / caregiver states he / she is on anticoagulants: Plavix. Home medication list is obtained from the patient. - Exposure Risk Screening:: None identified. Vital Signs: 11/06 14:17 BP 137 / 73; Pulse 129; Resp 20 S; Temp 100.4(O); Pulse Ox 93% on R/A; Weight 63.5 kg / dd6 139.99 lbs (R); Height 5 ft. 5 in. (165.10 cm) (R); 15:38 Temp 99.7(O); rs6 16:26 BP 162 / 65 (auto/); po 16:28 Pulse 108 MON; Pulse Ox 94% ; po 16:48 BP 155 / 66 (auto/); po 16:48 Pulse 108 MON; Resp 20; Pulse Ox 94% on R/A; Pain 7/10; po 17:17 Pulse 106 MON; Resp 20; Pulse Ox 96% on R/A; Pain 7/10; po 17:18 BP 149 / 67 (auto/); po 17:48 BP 162 / 70 (auto/); kas2 17:48 Pulse 106 MON; Pulse Ox 93% ; kas2 17:48 Resp 24; Temp 102.4; Pulse Ox 99% on R/A; Pain 4/10; kas2 18:18 BP 161 / 72 (auto/); kas2 18:18 Pulse 106 MON; Pulse Ox 100% ; kas2 19:29 BP 178 / 79 (auto/); kas2 19:29 Pulse 114 MON; Pulse Ox 95% ; kas2 19:51 BP 156 / 74 (auto/); kas2 19:51 Pulse 118 MON; Pulse Ox 95% ; kas2 19:51 BP 156 / 74; Pulse 118; Resp 24; Temp 102.6; Pulse Ox 99% on R/A; Pain 4/10; kas2 20:09 BP 156 / 74; Pulse 118; Resp 24; Temp 102.6; Pulse Ox 99% on R/A; Pain 4/10; kas2 14:17 Body Mass Index 23.30 (63.50 kg, 165.10 cm) dd6 MDM: 15:53 -Blood Culture (Adults Only), peripheral from different site, or from device/port/PICC sd1 etc. if present ordered. 15:53 Painter Helper/Pulse Ox/q 15 min VS ordered. sd1 15:53 IV Saline Lock ordered. sd1 15:53 Rhythm Strip to chart ordered. sd1 15:54 B-Type Natiuretic Peptide Ordered. EDMS 15:54 Basic Metabolic Profile Ordered. EDMS 15:54 CBC with Diff Ordered. EDMS 15:54 NS 0.9% 1000 ml IV at 150 mL/hr continuous ordered. sd1 15:55 Obtain sample by nasopharyngeal swab ordered. sd1 15:55 -Blood Culture Ordered. EDMS 15:55 Chest, 1 View Ordered. EDMS 15:55 ECG WITH READING ER PHYS+CARDIAG ordered. EDMS 15:55 -Blood Culture (Adults Only), peripheral from different site, or from device/port/PICC deg etc. if present complete. 15:56 Lactic Acid (Hendrix tube on ice) Ordered. EDMS 15:56 -Influenza A&B Rapid Antigen - Nose Ordered. EDMS 15:56 BLOOD CULTURES Ordered. EDMS 16:31 Financial registration complete. [email or web address] 16:48 [facility] Payment Agreement was scanned into [employer] and attached to record. [email or web address] 17:43 Basic Metabolic Profile Reviewed. sd1 17:43 CBC with Diff Reviewed. sd1 17:43 B-Type Natiuretic Peptide Reviewed. sd1 17:43 Lactic Acid (Hendrix tube on ice) Reviewed. sd1 17:43 -Influenza A&B Rapid Antigen - Nose Reviewed. sd1 17:43 Chest, 1 View Reviewed. sd1 18:27 Misc. Nursing Order ordered. sd1 19:04 BED REQUEST+ADM ordered. EDMS 19:05 CT Chest Without Contrast Ordered. EDMS 19:11 cefTRIAXone 1 grams IVPB once over 30 mins; dilute in 50mL of NS or D5W ordered. sd1 19:11 azithromycin 500 mg IVPB once over 1 hrs; dilute in 250mL of D5W or NS ordered. sd1 19:17 Albuterol-Ipratropium 3 ml Inhalation once ordered. sd1 19:17 Solu-MEDROL 125 mg IVP once ordered. sd1 19:40 Admission / Observation Status ordered. EDMS 19:40 REGULAR DIET ordered. EDMS 19:40 CBC WITH DIFFERENTIAL Ordered. EDMS 19:41 BASIC METABOLIC PROFILE Ordered. EDMS 11/08 10:46 ECG/EKG was scanned into [employer] and attached to record. gb 13:57 T-Sheet-- Draft Copy was scanned into [employer] and attached to record. gb Administered Medications: 11/06 17:05 Drug: NS 0.9% 1000 ml [sodium chloride 0.9 % intravenous solution] Route: IV; Rate: 150 rs3 mL/hr; Site: left antecubital; 19:32 Drug: cefTRIAXone 1 grams [ceftriaxone 1 gram solution for injection] Route: IVPB; kas2 Infused Over: 30 mins; Site: left antecubital; 20:06 Drug: azithromycin 500 mg [azithromycin 500 mg intravenous solution] Route: IVPB; kas2 Infused Over: 1 hrs; Site: left antecubital; 20:06 Drug: Solu-MEDROL 125 mg [Solu-Medrol 500 mg intravenous solution (125 mg)] Route: IVP; kas2 Site: left antecubital; Signatures: Dispatcher [employer] Sarah Burk MD MD sd1 Prema Streeter, Photo Printer Unit deg Jose LemonRN RN po Damion , Charline RN RN Dorinda Bello, Reg Reg gb Alen Rothman RN RN dy Smith, Mallory, RN RN [id number] Randi Bernal, Reg Reg [id number] Melina Oliveira RN RN kas2 Robyn Anaya RN rs3 The chart was reviewed and I authenticate all verbal orders and agree with the evaluation and treatment provided.Corrections: (The following items were deleted from the chart) 17:13 15:53 Oxygen at 4L/Min NC or Home dosage ordered. sd1 po Attachments: 16:48 [facility] Payment Agreement [email or web address] 11/08 10:46 ECG/EKG gb 13:57 T-Sheet-- Draft Copy gb Chart Complete MTDD
--- NOTE | 2016-11-08 22:02 | EDDOCDS ---
Physician Documentation [facility] Name: Betsy Beverly Age: 86 yrs Sex: Female : 1930 Arrival Date: 11/06/2016 Time: 14:14 Bed 18 Private MD: Danay Angel Disposition: 11/06/16 19:16 Hospitalization ordered by Lo Bishop for Inpatient Admission. Preliminary diagnosis is Chronic obstructive pulmonary disease with acute lower respiratory infection. - Bed requested for 4 [place]. - Status is Inpatient Admission. kas2 - Condition is Stable. - Problem is an acute exacerbation. - Symptoms are unchanged. Historical: - Allergies: SULFA (SULFONAMIDES); Aveloxseizure; - Home Meds: 1. aspirin 81 mg Oral tab 1 tab once daily 2. atorvastatin 20 mg oral tab 1 tab once daily 3. valsartan 80 mg oral cap daily 4. clopidogrel 75 mg oral tab 1 tab once daily 5. Centrum Silver oral tab daily 6. Calcium + Vitamin D 600 mg calcium- 200 unit Oral tab 1000 unit daily 7. Glucosamine 500 mg oral tab daily 8. Gemini 60 mg Oral cap as needed 9. Breo Ellipta 200-25 mcg/dose inhalation dsdv 1 puff once daily - PMHx: Asthma; COPD; Hypercholesterolemia; Hypertension; Seasonal Allergies; sepsis; - PSHx: Hysterectomy; Cholecystectomy; Thyroid Surgery; Mastectomy- Right; - Social history: Smoking status: Patient states was never smoker of tobacco. No barriers to communication noted, The patient speaks fluent [place]amb[place]. - Family history: No immediate family members are acutely ill. - : The pt / caregiver states he / she is on anticoagulants: Plavix. Home medication list is obtained from the patient. - Exposure Risk Screening:: None identified. Vital Signs: 11/06 14:17 BP 137 / 73; Pulse 129; Resp 20 S; Temp 100.4(O); Pulse Ox 93% on R/A; Weight 63.5 kg / dd6 139.99 lbs (R); Height 5 ft. 5 in. (165.10 cm) (R); 15:38 Temp 99.7(O); rs6 16:26 BP 162 / 65 (auto/); po 16:28 Pulse 108 MON; Pulse Ox 94% ; po 16:48 BP 155 / 66 (auto/); po 16:48 Pulse 108 MON; Resp 20; Pulse Ox 94% on R/A; Pain 7/10; po 17:17 Pulse 106 MON; Resp 20; Pulse Ox 96% on R/A; Pain 7/10; po 17:18 BP 149 / 67 (auto/); po 17:48 BP 162 / 70 (auto/); kas2 17:48 Pulse 106 MON; Pulse Ox 93% ; kas2 17:48 Resp 24; Temp 102.4; Pulse Ox 99% on R/A; Pain 4/10; kas2 18:18 BP 161 / 72 (auto/); kas2 18:18 Pulse 106 MON; Pulse Ox 100% ; kas2 19:29 BP 178 / 79 (auto/); kas2 19:29 Pulse 114 MON; Pulse Ox 95% ; kas2 19:51 BP 156 / 74 (auto/); kas2 19:51 Pulse 118 MON; Pulse Ox 95% ; kas2 19:51 BP 156 / 74; Pulse 118; Resp 24; Temp 102.6; Pulse Ox 99% on R/A; Pain 4/10; kas2 20:09 BP 156 / 74; Pulse 118; Resp 24; Temp 102.6; Pulse Ox 99% on R/A; Pain 4/10; kas2 14:17 Body Mass Index 23.30 (63.50 kg, 165.10 cm) dd6 MDM: 15:53 -Blood Culture (Adults Only), peripheral from different site, or from device/port/PICC sd1 etc. if present ordered. 15:53 Insurance Specialist/Pulse Ox/q 15 min VS ordered. sd1 15:53 IV Saline Lock ordered. sd1 15:53 Rhythm Strip to chart ordered. sd1 15:54 B-Type Natiuretic Peptide Ordered. EDMS 15:54 Basic Metabolic Profile Ordered. EDMS 15:54 CBC with Diff Ordered. EDMS 15:54 NS 0.9% 1000 ml IV at 150 mL/hr continuous ordered. sd1 15:55 Obtain sample by nasopharyngeal swab ordered. sd1 15:55 -Blood Culture Ordered. EDMS 15:55 Chest, 1 View Ordered. EDMS 15:55 ECG WITH READING ER PHYS+CARDIAG ordered. EDMS 15:55 -Blood Culture (Adults Only), peripheral from different site, or from device/port/PICC deg etc. if present complete. 15:56 Lactic Acid (Hendrix tube on ice) Ordered. EDMS 15:56 -Influenza A&B Rapid Antigen - Nose Ordered. EDMS 15:56 BLOOD CULTURES Ordered. EDMS 16:31 Financial registration complete. ks16 16:48 [facility] Payment Agreement was scanned into [employer]. and attached to record. ks16 17:43 Basic Metabolic Profile Reviewed. sd1 17:43 CBC with Diff Reviewed. sd1 17:43 B-Type Natiuretic Peptide Reviewed. sd1 17:43 Lactic Acid (Hendrix tube on ice) Reviewed. sd1 17:43 -Influenza A&B Rapid Antigen - Nose Reviewed. sd1 17:43 Chest, 1 View Reviewed. sd1 18:27 Misc. Nursing Order ordered. sd1 19:04 BED REQUEST+ADM ordered. EDMS 19:05 CT Chest Without Contrast Ordered. EDMS 19:11 cefTRIAXone 1 grams IVPB once over 30 mins; dilute in 50mL of NS or D5W ordered. sd1 19:11 azithromycin 500 mg IVPB once over 1 hrs; dilute in 250mL of D5W or NS ordered. sd1 19:17 Albuterol-Ipratropium 3 ml Inhalation once ordered. sd1 19:17 Solu-MEDROL 125 mg IVP once ordered. sd1 19:40 Admission / Observation Status ordered. EDMS 19:40 REGULAR DIET ordered. EDMS 19:40 CBC WITH DIFFERENTIAL Ordered. EDMS 19:41 BASIC METABOLIC PROFILE Ordered. EDMS 11/08 10:46 ECG/EKG was scanned into [employer]. and attached to record. gb 13:57 T-Sheet-- Draft Copy was scanned into [employer]. and attached to record. gb Administered Medications: 11/06 17:05 Drug: NS 0.9% 1000 ml [sodium chloride 0.9 % intravenous solution] Route: IV; Rate: 150 rs3 mL/hr; Site: left antecubital; 19:32 Drug: cefTRIAXone 1 grams [ceftriaxone 1 gram solution for injection] Route: IVPB; kas2 Infused Over: 30 mins; Site: left antecubital; 20:06 Drug: azithromycin 500 mg [azithromycin 500 mg intravenous solution] Route: IVPB; kas2 Infused Over: 1 hrs; Site: left antecubital; 20:06 Drug: Solu-MEDROL 125 mg [Solu-Medrol 500 mg intravenous solution (125 mg)] Route: IVP; kas2 Site: left antecubital; Signatures: Dispatcher [employer] Sarah Burk MD MD sd1 Prema Streeter, Human Resources Professional Unit deg Jose LemonRN RN po Damion , Charline RN RN Dorinda Bello, Reg Reg gb Alen Rothman RN RN dy Smith, Mallory, RN RN ms18 Randi Bernal, Reg Reg ks16 Melina Oliveira RN RN kas2 Robyn Anaya RN rs3 The chart was reviewed and I authenticate all verbal orders and agree with the evaluation and treatment provided.Corrections: (The following items were deleted from the chart) 17:13 15:53 Oxygen at 4L/Min NC or Home dosage ordered. sd1 po Attachments: 16:48 [facility] Payment Agreement ks16 11/08 10:46 ECG/EKG gb 13:57 T-Sheet-- Draft Copy gb Chart Complete MTDD
--- NOTE | 2016-11-08 22:03 | EDDOCDS ---
Nurse's Notes [facility] Name: Betsy Beverly Age: 86 yrs Sex: Female : 1930 Arrival Date: 11/06/2016 Time: 14:14 Bed 18 Private MD: Danay Angel Diagnosis: Chronic obstructive pulmonary disease with acute lower respiratory infection Presentation: 11/06 14:39 Presenting complaint: Patient states: that is has L ear pain, coughing, a temp, and a ms18 "head cold". Pt was seen at her doctor's office on and given medications a z-pack, but pt's temperature keeps going up per family. Adult Sepsis Screening: The patient does not have new or worsening altered mentation. Patient's respiratory rate is less than 22. Systolic blood pressure is greater than 100. Patient has a qSOFA score of 0- Negative Sepsis Screen. Suicide/Homicide risk assessment- the patient denies having any suicidal and/or homicidal ideations and does not present with any other emotional, behavioral or mental health complaints. Status: Patient is not a special agent secret service or dependent. Transition of care: patient was not received from another setting of care. 14:39 Acuity: MEGAN Level 3 ms18 14:39 Method Of Arrival: Walkin/Carried/Asstd ms18 Triage Assessment: 14:46 General: Appears in no apparent distress, ill, Behavior is appropriate for age, ms18 cooperative, pleasant. Pain: Location: head and left ear Pain currently is 7 out of 10 on a pain scale. EENT: Reports pain in left ear. Respiratory: Airway is patent Respiratory effort is even, unlabored. Derm: Skin is pink, warm & dry. Historical: - Allergies: SULFA (SULFONAMIDES); Aveloxseizure; - Home Meds: 1. aspirin 81 mg Oral tab 1 tab once daily 2. atorvastatin 20 mg oral tab 1 tab once daily 3. valsartan 80 mg oral cap daily 4. clopidogrel 75 mg oral tab 1 tab once daily 5. Centrum Silver oral tab daily 6. Calcium + Vitamin D 600 mg calcium- 200 unit Oral tab 1000 unit daily 7. Glucosamine 500 mg oral tab daily 8. Gemini 60 mg Oral cap as needed 9. Breo Ellipta 200-25 mcg/dose inhalation dsdv 1 puff once daily - PMHx: Asthma; COPD; Hypercholesterolemia; Hypertension; Seasonal Allergies; sepsis; - PSHx: Hysterectomy; Cholecystectomy; Thyroid Surgery; Mastectomy- Right; - Social history: Smoking status: Patient states was never smoker of tobacco. No barriers to communication noted, The patient speaks fluent Kitt[place]. - Family history: No immediate family members are acutely ill. - : The pt / caregiver states he / she is on anticoagulants: Plavix. Home medication list is obtained from the patient. - Exposure Risk Screening:: None identified. Screenin:48 Screening information is obtained from the patient. Fall risk: No risks identified. po Assistance ADL's: requires no assistance with activities of daily living. Abuse/DV Screen: The patient / caregiver reports he/she is: not in a situation that causes fear, pain or injury. Nutritional screening: No deficits noted. Advance Directives: Currently, there is a health care proxy, Daughter, Aide Walls. There is an active DNR order but there is no copy available at this time. Further advance directive information is declined. home support is adequate. Assessment: 16:52 Adult Sepsis Screening: The patient does not have new or worsening altered mentation. po Patient's respiratory rate is less than 22. Systolic blood pressure is greater than 100. Patient has a qSOFA score of 0- Negative Sepsis Screen. General: Appears in no apparent distress, comfortable, Behavior is appropriate for age, cooperative, pleasant. Pain: Location: left ear Pain currently is 7 out of 10 on a pain scale. Quality of pain is described as aching, Is continuous. Neurological: Level of Consciousness is awake, alert, Oriented to person, place, time. Cardiovascular: Rhythm is sinus rhythm Chest pain is denied. Respiratory: Airway is patent Respiratory effort is even, unlabored, Breath sounds with rhonchi expiratory bilaterally. Reports cough that is productive. GI: No deficits noted. Derm: Skin is pink, warm & dry. 17:32 General: Appears in no apparent distress, comfortable, Behavior is appropriate for age, po cooperative, pleasant. Pain: Pain currently is 7 out of 10 on a pain scale. Neurological: No deficits noted. Cardiovascular: Rhythm is sinus rhythm Chest pain is denied. Respiratory: Airway is patent Respiratory effort is even, unlabored. Derm: Skin is pink, warm & dry. 19:00 Adult Sepsis Screening: The patient does not have new or worsening altered mentation. po Patient's respiratory rate is less than 22. Systolic blood pressure is greater than 100. Patient has a qSOFA score of 0- Negative Sepsis Screen. General: Appears in no apparent distress, comfortable, Behavior is appropriate for age, cooperative, pleasant. Pain: Location: left ear Pain currently is 7 out of 10 on a pain scale. Quality of pain is described as aching. Neurological: No deficits noted. Respiratory: Airway is patent Respiratory effort is even, unlabored, ambulated in alvarez with walker, O2Sat decreased to 77% on room air while ambulating. Derm: Skin is pink, warm & dry. 19:02 General: Verbal report given by Jose Lemon RN. Assumed care of patient at this time.. [facility] 19:32 General: Appears in no apparent distress, comfortable, well nourished, well groomed, kas2 Behavior is appropriate for age, cooperative. Pain: Location: left ear and head Pain currently is 4 out of 10 on a pain scale. Neurological: Level of Consciousness is awake, alert, Oriented to person, place, time. Cardiovascular: Capillary refill < 3 seconds Heart tones S1 S2 present Rhythm is sinus tachycardia No ectopy. Respiratory: Airway is patent Respiratory effort is even, unlabored, Breath sounds with rhonchi expiratory bilaterally. GI: No deficits noted. Derm: Skin is intact, is healthy with good turgor, Skin is dry, Skin is pink, warm & dry. Skin temperature is hot. 20:06 General: Patient has a temp of 102.6. Patient shivering and uncomfortable all over [facility] body. Meds given.. Vital Signs: 14:17 BP 137 / 73; Pulse 129; Resp 20 S; Temp 100.4(O); Pulse Ox 93% on R/A; Weight 63.5 kg dd6 (R); Height 5 ft. 5 in. (165.10 cm) (R); 15:38 Temp 99.7(O); rs6 16:26 BP 162 / 65 (auto/); po 16:28 Pulse 108 MON; Pulse Ox 94% ; po 16:48 BP 155 / 66 (auto/); po 16:48 Pulse 108 MON; Resp 20; Pulse Ox 94% on R/A; Pain 7/10; po 17:17 Pulse 106 MON; Resp 20; Pulse Ox 96% on R/A; Pain 7/10; po 17:18 BP 149 / 67 (auto/); po 17:48 BP 162 / 70 (auto/); kas2 17:48 Pulse 106 MON; Pulse Ox 93% ; kas2 17:48 Resp 24; Temp 102.4; Pulse Ox 99% on R/A; Pain 4/10; kas2 18:18 BP 161 / 72 (auto/); kas2 18:18 Pulse 106 MON; Pulse Ox 100% ; kas2 19:29 BP 178 / 79 (auto/); kas2 19:29 Pulse 114 MON; Pulse Ox 95% ; kas2 19:51 BP 156 / 74 (auto/); kas2 19:51 Pulse 118 MON; Pulse Ox 95% ; kas2 19:51 BP 156 / 74; Pulse 118; Resp 24; Temp 102.6; Pulse Ox 99% on R/A; Pain 4/10; kas2 20:09 BP 156 / 74; Pulse 118; Resp 24; Temp 102.6; Pulse Ox 99% on R/A; Pain 4/10; kas2 14:17 Body Mass Index 23.30 (63.50 kg, 165.10 cm) dd6 Vitals: 14:17 Log In Time: November 06, 2016 at 14:15. dd6 ED Course: 14:16 Patient visited by Garfield Howard PCA. dd6 14:16 Danay Angel is Private Physician. dd6 14:16 Patient moved to Waiting dd6 14:17 Patient moved to Pre RCE dd6 14:41 Triage Initiated ms18 15:38 Patient moved to I9 / 22 mlb1 15:39 Sarah Holguin MD is Attending Physician. sd1 15:41 Patient visited by Benita Felton, KIMO. dls 15:44 Patient visited by Sarah Holguin MD. sd1 16:05 Patient visited by Barbara Garcia PCA. ls3 16:05 EKG done. (by ED staff). Reviewed by Sarah Holguin MD. ls3 16:23 Jose Lemon,RN is Primary Nurse. hs1 16:23 Patient moved to 18 hs1 16:48 Pt visited by daughter. po 16:48 [facility] Payment Agreement was scanned into [employer] and attached to record. ks16 16:48 The patient / caregiver is instructed regarding the plan of care and ED course. Placed po in gown. Bed in low position. Call light in reach. Side rails up X2. production service manager on. Pulse ox on. NIBP on. 16:48 Inserted saline lock: 20 gauge in left antecubital area. Labs drawn. (by ED staff). po Sent per order to lab. 16:59 Patient visited by Jose Lemon RN. po 17:28 Chest, 1 View Returned. EDMS 17:34 Patient visited by Jose Lemon RN. po 19:01 Melina Oliveira RN is Primary Nurse. kas2 19:02 Patient visited by Jose Lemon RN. po 19:03 Patient visited by Melina Oliveira RN. kas2 19:06 Primary Nurse role handed off by Jose Lemon RN po 19:16 Lo Bishop is Hospitalizing Provider. sd1 19:35 Patient visited by Melina Oliveira RN. kas2 20:13 Patient visited by Melina Oliveira RN. kas2 20:15 No procedures done that require assistance. kas2 11/08 10:46 ECG/EKG was scanned into [employer] and attached to record. gb 13:57 T-Sheet-- Draft Copy was scanned into [employer] and attached to record. gb Administered Medications: 11/06 17:05 Drug: NS 0.9% 1000 ml [sodium chloride 0.9 % intravenous solution] Route: IV; Rate: 150 rs3 mL/hr; Site: left antecubital; 19:32 Drug: cefTRIAXone 1 grams [ceftriaxone 1 gram solution for injection] Route: IVPB; kas2 Infused Over: 30 mins; Site: left antecubital; 20:06 Drug: azithromycin 500 mg [azithromycin 500 mg intravenous solution] Route: IVPB; kas2 Infused Over: 1 hrs; Site: left antecubital; 20:06 Drug: Solu-MEDROL 125 mg [Solu-Medrol 500 mg intravenous solution (125 mg)] Route: IVP; kas2 Site: left antecubital; Order Results: Lab Order: B-Type Natiuretic Peptide; SPEC'M 11/06/16 16:46 Test: BRAIN NATRIURETIC PEPTIDE; Value: 51.3; Range: <100; Units: PG/ML; Status: F Lab Order: Basic Metabolic Profile; SPEC'M 11/06/16 16:47 Test: GLUCOSE, FASTING; Value: 117; Range: 83-110; Abnormal: Above high normal; Units: MG/DL; Status: F Test: BLOOD UREA NITROGEN; Value: 24; Range: 7-18; Abnormal: Above high normal; Units: MG/DL; Status: F Test: CREATININE FOR GFR; Value: 0.88; Range: 0.55-1.02; Units: MG/DL; Status: F Test: GLOMERULAR FILTRATION RATE; Value: > 60.0; Range: >32; Status: F Test: SODIUM LEVEL; Value: 140; Range: 136-145; Units: MEQ/L; Status: F Test: POTASSIUM SERUM; Value: 4.5; Range: 3.5-5.1; Units: MEQ/L; Status: F Test: CHLORIDE LEVEL; Value: 105; Range: 98-107; Units: MEQ/L; Status: F Test: CARBON DIOXIDE LEVEL; Value: 24; Range: 21-32; Units: MEQ/L; Status: F Test: ANION GAP; Value: 11; Range: 8-16; Units: MEQ/L; Status: F Test: CALCIUM LEVEL; Value: 8.8; Range: 8.8-10.2; Units: MG/DL; Status: F Test Note: ; Units are mL/min/1.73 m2 Chronic Kidney Disease Staging per NKF: Stage I & II GFR >=60 Normal to Mildly Decreased Stage III GFR 30-59 Moderately Decreased Stage IV GFR 15-29 Severely Decreased Stage V GFR <15 Very Little GFR Left ESRD GFR <15 on LEARNING DEVELOPMENT SPECIALIST Lab Order: CBC with Diff; SPEC'M 11/06/16 16:46 Test: WHITE BLOOD COUNT; Value: 9.4; Range: 4.0-10.0; Units: K/mm3; Status: F Test: RED BLOOD COUNT; Value: 4.11; Range: 4.00-5.40; Units: M/mm3; Status: F Test: HEMOGLOBIN; Value: 12.6; Range: 12.0-16.0; Units: g/dl; Status: F Test: HEMATOCRIT; Value: 37.4; Range: 36.0-47.0; Units: %; Status: F Test: MEAN CORPUSCULAR VOLUME; Value: 91.0; Range: 80.0-96.0; Units: fl; Status: F Test: MEAN CORPUSCULAR HEMOGLOBIN; Value: 30.7; Range: 27.0-33.0; Units: pg; Status: F Test: MEAN CORPUSCULAR HGB CONC; Value: 33.8; Range: 32.0-36.5; Units: g/dl; Status: F Test: RED CELL DISTRIBUTION WIDTH; Value: 12.7; Range: 11.5-14.5; Units: %; Status: F Test: PLATELET COUNT, AUTOMATED; Value: 92; Range: 150-450; Abnormal: Below low normal; Units: k/mm3; Status: F Test: NEUTROPHILS %; Value: 86.7; Range: 36.0-66.0; Abnormal: Above high normal; Units: %; Status: F Test: LYMPH %; Value: 8.8; Range: 24.0-44.0; Abnormal: Below low normal; Units: %; Status: F Test: MONO %; Value: 2.8; Range: 0.0-5.0; Units: %; Status: F Test: EOS %; Value: 0.7; Range: 0.0-3.0; Units: %; Status: F Test: BASO %; Value: 0.2; Range: 0.0-1.0; Units: %; Status: F Test: LARGE UNSTAINED CELL %; Value: 0.7; Range: 0.0-4.0; Units: %; Status: F Test: NEUTROPHILS #; Value: 8.1; Range: 1.8-7.7; Abnormal: Above high normal; Units: K/mm3; Status: F Test: LYMPH #; Value: 0.8; Range: 1.5-4.5; Abnormal: Below low normal; Units: K/mm3; Status: F Test: MONO #; Value: 0.3; Range: 0.0-0.8; Units: K/mm3; Status: F Test: EOS #; Value: 0.1; Range: 0.0-0.50; Units: K/mm3; Status: F Test: BASO #; Value: 0.0; Range: 0.0-0.2; Units: K/mm3; Status: F Test: LARGE UNSTAINED CELL #; Value: 0.1; Range: 0.0-0.4; Units: K/mm3; Status: F Lab Order: Lactic Acid (Hendrix tube on ice); SPEC'M 11/06/16 16:46 Test: LACTIC ACID LEVEL, LACTATE; Value: 1.5; Range: 0.4-2.0; Units: MMOL/L; Status: F Lab Order: -Influenza A&B Rapid Antigen - Nose; SPEC'M 11/06/16 16:46 Test: INFLUENZA A RAPID SCR by ICA; Value: INFLUENZA A RESULTS NEGATIVE; Status: F Test: INFLUENZA A RAPID SCR by ICA; Value: Comments:; Status: F Test: INFLUENZA B RAPID SCR by ICA; Value: INFLUENZA B RESULTS NEGATIVE; Status: F Test Note: ; The Influenza test is a direct rapid immunoassay for the qualitative detection of Influenza viral antigen. Cell culture (Viral Culture) testing should be considered to confirm NEGATIVE results and to assist in detecting other viruses that can provide similar clinical symptoms. Please contact the lab within 24 hours ([phone]) if confirmatory testing is desired. Radiology Order: Chest, 1 View Test: Chest, 1 View REASON FOR EXAMINATION: Cough; Clinical: Acute cough .; ; Comparison: 09/21/2016 .; ; Findings:; The mediastinum and cardiac silhouette are stable and within normal limits for; portable technique. The lung block are clear without acute consolidation,; effusion, or pneumothorax. Skeletal structures are intact. Surgical clips noted; over the thyroid bed.; ; Impression:; No acute cardiopulmonary process appreciated.; ; ; Signed by; Nahum Lozano MD 11/06/2016 04:35 P; Outcome: 19:16 Decision to Hospitalize by Provider. sd1 20:14 Discharge Assessment: patient administered narcotics - no. The following High Risk kas2 Discharge criteria are identified: None. Admitted to Med/Surg accompanied by tech, via stretcher, with chart. Condition: good Condition: stable Condition: unchanged. CT Study completed. Property :Personal belongings accompany Pt. 21:01 Patient left the ED. kas2 Signatures: Dispatcher [employer] Sarah Burk MD MD sd1 Jose Lemon RN RN po Scott, Debra, RN RN dls Barnhardt, Gloria, Reg Reg gb Alen Rothman, RN RN dy Sina Arrington, RN RN mlb1 Garfield Howard, MANAGER RESOURCE MANAGER RESOURCE dd6 Robyn Anaya RN RN rs3 Dafne Baker, KIMO RN hs1 Wendy Oliveira,KIMO RN ms18 Preciado, Rika, MANAGER RESOURCE MANAGER RESOURCE rs6 Radha Barbara, MANAGER RESOURCE MANAGER RESOURCE ls3 Randi Bernal, Reg Reg ks16 Melina Oliveira RN RN kas2 Corrections: (The following items were deleted from the chart) 15:56 15:55 Temp 99.7F Oral; rs6 rs6 17:02 16:52 Respiratory: Airway is patent Respiratory effort is even, unlabored, Breath po sounds with rhonchi expiratory bilaterally. po Chart Complete MTDD
[2016-11-09] MEDS: IPRATROPIUM 0.5MG/ALBUTEROL 2.5MG INH SOL UD 3ML (DUONEB)(J7620) NEB SCH ×2 (02:00→08:07)
[2016-11-09] MEDS ORDERED: MOM 30ML SUSPENSION UDC PO PRN (04:00)
[2016-11-09 06:00] VITALS: BP 150/77
[2016-11-09 06:39] LABS: BASO % 0.2 % (0.0-1.0); EOS # 0.1 K/mm3 (0.0-0.50); LARGE UNSTAINED CELL # 0.1 K/mm3 (0.0-0.4); LYMPH # 1.5 K/mm3 (1.5-4.5); LYMPH % 26.3 % (24.0-44.0); MEAN CORPUSCULAR HEMOGLOBIN 31.1 pg (27.0-33.0); MEAN CORPUSCULAR HGB CONC 33.8 g/dl (32.0-36.5); MEAN CORPUSCULAR VOLUME 91.8 fl (80.0-96.0); MONO # 0.2 K/mm3 (0.0-0.8); MONO % 3.5 % (0.0-5.0); NEUTROPHILS # 3.9 K/mm3 (1.8-7.7); WHITE BLOOD COUNT 5.8 K/mm3 (4.0-10.0)
[2016-11-09 06:41] LABS: PLATELET COUNT, AUTOMATED 59 k/mm3 (150-450)
[2016-11-09 06:57] LABS: ANION GAP 9 MEQ/L (8-16); BLOOD UREA NITROGEN 15 MG/DL (7-18); CALCIUM LEVEL 7.8 MG/DL (8.8-10.2); CARBON DIOXIDE LEVEL 23 MEQ/L (21-32); CHLORIDE LEVEL 110 MEQ/L (98-107); CREATININE FOR GFR 0.69 MG/DL (0.55-1.02); GLOMERULAR FILTRATION RATE > 60.0 (>32); GLUCOSE, FASTING 85 MG/DL (83-110); POTASSIUM SERUM 3.8 MEQ/L (3.5-5.1); SODIUM LEVEL 142 MEQ/L (136-145)
[2016-11-09] MEDS: BUDESONIDE 0.5 MG/2 ML INHALATION SUSPENSION INH SCH (08:08)
[2016-11-09] MEDS: POTASSIUM CHLORIDE 10% LIQ 20 MEQ/15 ML UDC PO SCH (09:30)
[2016-11-09] MEDS: PANTOPRAZOLE 40MG TAB (PROTONIX) PO SCH (09:30)
[2016-11-09] MEDS ORDERED: CEFD1CAP8 PO (11:06)
[2016-11-09] MEDS ORDERED: CLAR1TAB2 PO (11:06)
[2016-11-09] MEDS ORDERED: ALBU17IN2 INH (11:07)
--- NOTE | 2016-11-10 03:13 | DSES ---
DATE OF ADMISSION: 11/06/2016 DATE OF DISCHARGE: 11/09/2016 PRIMARY CARE PROVIDER: Dr. Angel. FINAL DIAGNOSES: 1. Shortness of breath secondary to community-acquired bacterial pneumonia. 2. Sepsis due to community-acquired bacterial pneumonia. 3. Chronic obstructive pulmonary disease (COPD). 4. Hypertension. 5. Dyslipidemia. 6. Coronary arterial disease. 7. Thrombocytopenia. 8. History of breast cancer. HISTORY OF PRESENT ILLNESS: This is an 86-year-old female patient from home who reported feeling sick for about 6-7 days, has been having fever with congestion, left ear pain, sinus tenderness, along with cough and phlegm production. Patient has gone to primary care provider and was given a course of Z-Leon, which she finished without any resolution of symptoms. Patient continued to have high-grade fever, 101, 102 at home with worsening cough and earache and headache, so reported to the hospital. In the emergency room, patient was having temperature [address] scan of the chest, which shows bilateral infiltrate, multifocal pneumonia. Subsequently, patient is being admitted. HOSPITAL COURSE: Patient has been admitted to the hospital, given intravenous (IV) antibiotics. Cultures were sent. Given nebulizer treatments, inhaled corticosteroids, ipratropium. Blood pressure medications were continued. Home medications were continued, aspirin and Plavix. Patient's condition progressively improved. Currently, patient feels comfortable. Reported only mild nasal congestion, reported dyspnea much improved. Tolerating oral, ready for discharge for further care as outpatient. VITAL SIGNS: Temperature 98.6, pulse 84, respirations 17, blood pressure 140/77, pulse oximetry 96% on room air. LABORATORY: WBC 5.8, hemoglobin and hematocrit 10.5/31.2, platelets 59. Chemistry: Sodium 142, potassium 3.8, chloride 110, bicarbonate 23, BUN 15, creatinine 0.69. DISCHARGE MEDICATIONS: - Proventil two-puff inhalation every 6 hours as needed - cefdinir 300 mg by mouth twice a day, five more days - loratadine 10 mg by mouth nightly, 10 tablets - acetaminophen 500 mg by mouth every 4 hours as needed - aspirin 81 mg by mouth nightly - Lipitor 20 mg by mouth nightly - calcium/vitamin D one tablet by mouth daily - Plavix 75 mg by mouth nightly - Breo inhalation once daily - glucosamine 500 mg by mouth daily - multivitamin one tablet by mouth daily - nitroglycerin sublingually 0.4 mg as needed - valsartan 80 mg by mouth nightly DISCHARGE INSTRUCTIONS: Patient is instructed to followup with primary care provider in 7 days. Return to the hospital if symptoms worsen.
== END 2016-11-09 12:25 | disposition home or self-care (01) | DRG 871 ==
LOC: M ED 14:14 → M ED INP 19:36 → M MSPAV 20:34
PROVIDERS: ADMIT Internal Medicine Nephrology; ATTEND Hospitalist
DX: A41.9 Sepsis, unspecified organism (principal); J18.9 Pneumonia, unspecified organism; J44.0 Chronic obstructive pulmonary disease with (acute) lower respiratory infection; J44.1 Chronic obstructive pulmonary disease with (acute) exacerbation; I10 Essential (primary) hypertension; E78.5 Hyperlipidemia, unspecified; J30.9 Allergic rhinitis, unspecified; D69.6 Thrombocytopenia, unspecified; I25.10 Atherosclerotic heart disease of native coronary artery without angina pectoris; Z85.3 Personal history of malignant neoplasm of breast; Z90.11 Acquired absence of right breast and nipple; Z90.710 Acquired absence of both cervix and uterus; Z79.82 Long term (current) use of aspirin; Z79.02 Long term (current) use of antithrombotics/antiplatelets; Z79.899 Other long term (current) drug therapy

== ENCOUNTER 2017-01-27 22:12 | Emergency (ER) | payer MEDICARE ==
[~2017-01-27] VITALS: Ht 157.5 cm; Wt 63.5 kg
[~2017-01-27 22:12] MED LIST changes: +ALBU17IN2 INH; +ASPI81TA7 PO; +BREO1INH3 INH; +CLAR1TAB2 PO; +TYLE500T78 PO; +VALS1TAB46 PO
[2017-01-27 23:31] LABS: BASO % 0.6 % (0.0-1.0); EOS # 0.5 K/mm3 (0.0-0.50); EOS % 10.9 % (0.0-3.0); LARGE UNSTAINED CELL # 0.1 K/mm3 (0.0-0.4); LARGE UNSTAINED CELL % 2.2 % (0.0-4.0); LYMPH # 1.3 K/mm3 (1.5-4.5); LYMPH % 25.4 % (24.0-44.0); MEAN CORPUSCULAR HEMOGLOBIN 30.9 pg (27.0-33.0); MEAN CORPUSCULAR VOLUME 93.9 fl (80.0-96.0); MONO # 0.4 K/mm3 (0.0-0.8); MONO % 7.2 % (0.0-5.0); NEUTROPHILS # 2.6 K/mm3 (1.8-7.7); NEUTROPHILS % 53.7 % (36.0-66.0); PLATELET COUNT, AUTOMATED 117 k/mm3 (150-450); RED CELL DISTRIBUTION WIDTH 13.4 % (11.5-14.5); WHITE BLOOD COUNT 4.9 K/mm3 (4.0-10.0)
[2017-01-27 23:39] LABS: INR 1.01
--- NOTE | 2017-01-27 23:40 | REPUSA ---
CT of the head Clinical history: Headache. Protocol: Multiple axial CT images obtained with 5 mm slice thickness were obtained through the head without administration of contrast. Findings: The ventricles and sulci are symmetric bilaterally. There are periventricular areas of low attenuation throughout the deep white matter. There is no evidence of acute hemorrhage or infarct. Th ere is no midline shift, mass effect, or extra-axial fluid collection. The osseous structures are unr emarkable. The mastoid air cells are clear. There is minimal mucosal thickening in the left frontal, maxillary, and ethmoid sinuses. Impression: 1. No acute hemorrhage or infarct. Findings are consistent with mild chronic small vessel ischemic di sease. 2. Minimal mucosal changes in the left frontal, maxillary, and ethmoid sinuses.
[2017-01-28 00:07] LABS: ANION GAP 8 MEQ/L (8-16); BLOOD UREA NITROGEN 23 MG/DL (7-18); CALCIUM LEVEL 8.7 MG/DL (8.8-10.2); CARBON DIOXIDE LEVEL 26 MEQ/L (21-32); CHLORIDE LEVEL 106 MEQ/L (98-107); CREATININE FOR GFR 0.66 MG/DL (0.55-1.02); GLOMERULAR FILTRATION RATE > 60.0 (>32); GLUCOSE, FASTING 97 MG/DL (83-110); POTASSIUM SERUM 4.2 MEQ/L (3.5-5.1); SODIUM LEVEL 140 MEQ/L (136-145)
[2017-01-28 05:55] VITALS: BP 129/63
--- NOTE | 2017-01-28 07:56 | ECGEPIP ---
Stationary ECG Study [facility] - ED Test Date: 2017-01-27 Pat Name: MARY LOWERY Department: Room: - Gender: F Rides Supervisor: kaylee : 1930 Requested By: KEVIN Jeffrey Order Number: [id number] Reading MD: Brayden Soares Measurements Intervals [place] Rate: 77 P: 64 [place]: 180 QRS: -1 QRSD: 105 T: 38 QT: 405 QTc: 460 Interpretive Statements SINUS RHYTHM IVCD Electronically Signed On 01-28-2017 7:56:06 EDT by Brayden Soares
--- NOTE | 2017-01-28 08:07 | REP ---
Portable chest, single AP view, patient sitting: Comparison is 11/06/2016. The lung block are clear. The cardiac size is normal. The salom[place], mediastinum, and bony thorax are unremarkable. There are surgical clips at the base of the neck bilaterally, unchanged. Impression: Negative portable chest. Signed by Jose Max MD 01/28/2017 07:58 A
[2017-01-28] MEDS ORDERED: VALS1TAB47 PO (20:52)
--- NOTE | 2017-01-29 08:20 | ECGEPIP ---
Stationary ECG Study [facility] - ED Test Date: 2017-01-28 Pat Name: MARY LOWERY Department: Room: - Gender: F Outpatient Coordinator: patricia : 1930 Requested By: AYO CABRERA Order Number: [id number] Reading MD: Sarah Holguin Measurements Intervals [place] Rate: 73 P: 53 [place]: 192 QRS: -5 QRSD: 110 T: 38 QT: 431 QTc: 478 Interpretive Statements SINUS RHYTHM MODERATE INTRAVENTRICULAR CONDUCTION DELAY DELAYED R PROGRESSION SIMILAR 01/27/17 Electronically Signed On 01-29-2017 8:19:40 EDT by Sarah Holguin
== END 2017-01-28 05:50 | disposition home or self-care (01) ==
LOC: M ED 22:12
DX: I10 Essential (primary) hypertension (principal); J45.909 Unspecified asthma, uncomplicated; E78.5 Hyperlipidemia, unspecified; Z95.5 Presence of coronary angioplasty implant and graft; Z79.899 Other long term (current) drug therapy; Z79.82 Long term (current) use of aspirin; Z79.51 Long term (current) use of inhaled steroids; Z88.2 Allergy status to sulfonamides; Z88.8 Allergy status to other drugs, medicaments and biological substances

== ENCOUNTER 2017-01-28 20:40 | Emergency (ER) | payer MEDICARE ==
[~2017-01-28] VITALS: Ht 157.5 cm; Wt 63.5 kg
[2017-01-28] MEDS ORDERED: VALS1TAB47 PO (20:52)
[2017-01-28] MEDS ORDERED: LABETALOL HCL 100 MG/20 ML VIAL IV STA (22:26)
[2017-01-28 22:41] LABS: BASO % 0.8 % (0.0-1.0); EOS # 0.6 K/mm3 (0.0-0.50); EOS % 11.5 % (0.0-3.0); LARGE UNSTAINED CELL # 0.1 K/mm3 (0.0-0.4); LARGE UNSTAINED CELL % 2.3 % (0.0-4.0); LYMPH # 1.5 K/mm3 (1.5-4.5); LYMPH % 29.7 % (24.0-44.0); MEAN CORPUSCULAR HEMOGLOBIN 30.9 pg (27.0-33.0); MEAN CORPUSCULAR HGB CONC 32.6 g/dl (32.0-36.5); MEAN CORPUSCULAR VOLUME 94.8 fl (80.0-96.0); MONO # 0.3 K/mm3 (0.0-0.8); MONO % 6.4 % (0.0-5.0); NEUTROPHILS # 2.5 K/mm3 (1.8-7.7); NEUTROPHILS % 49.3 % (36.0-66.0); PLATELET COUNT, AUTOMATED 120 k/mm3 (150-450); RED CELL DISTRIBUTION WIDTH 13.4 % (11.5-14.5)
[2017-01-28 23:05] LABS: ANION GAP 7 MEQ/L (8-16); BLOOD UREA NITROGEN 20 MG/DL (7-18); CARBON DIOXIDE LEVEL 28 MEQ/L (21-32); CHLORIDE LEVEL 106 MEQ/L (98-107); CREATININE FOR GFR 0.75 MG/DL (0.55-1.02); GLOMERULAR FILTRATION RATE > 60.0 (>32); GLUCOSE, FASTING 100 MG/DL (83-110); POTASSIUM SERUM 4.1 MEQ/L (3.5-5.1); SODIUM LEVEL 141 MEQ/L (136-145); T UPTAKE 37 % (30-39); THYROXINE (T4) 11.4 UG/DL (4.5-12.0)
[2017-01-28 23:11] VITALS: BP 150/73
[2017-01-29 00:28] VITALS: BP 137/65
--- NOTE | 2017-01-29 10:56 | REP ---
AP PORTABLE CHEST: 01/28/2017. Comparison: 01/27/2017, 11/06/2016. Clinical history: Chest pain. Lungs are adequately inflated. There is no infiltrate or effusion. Pulmonary arteries are prominent centrally suggesting pulmonary artery hypertension and unchanged. The aorta is calcified at the arch, mildly tortuous without aneurysm. Airway intact. There are clips at the neck base from prior thyroid surgery. All of this stable. No effusion, pneumothorax and mediastinum. No edema. Impression: 1. Some pulmonary artery hypertension from COPD but no cardiomegaly, edema, effusion or other acute finding. Signed by Carter Manzanares MD 01/29/2017 08:21 P
--- NOTE | 2017-01-30 20:41 | ECGEPIP ---
Stationary ECG Study [facility] - ED Test Date: 2017-01-28 Pat Name: MARY LOWERY Department: Room: - Gender: F Social Service Manager: minor : 1930 Requested By: ROBERTA De Jesus Order Number: [id number] Reading MD: Sarah Holguin Measurements Intervals [place] Rate: 72 P: 36 [place]: 185 QRS: -14 QRSD: 93 T: 16 QT: 417 QTc: 459 Interpretive Statements SINUS RHYTHM LOW QRS VOLTAGE IN PRECORDIAL LEADS DELAYED R PROGRESSION NSTTW ABNORMALITY SIMILAR 01/28/17 4:34 Electronically Signed On 01-30-2017 20:41:04 EDT by Sarah Holguin
== END 2017-01-29 00:39 | disposition home or self-care (01) ==
LOC: M ED 20:47
DX: I10 Essential (primary) hypertension (principal)